=== PATIENT | female | born 1960 | race Caucasian/White ===

== ENCOUNTER 2024-11-14 20:46 | Outpatient (OUT) | payer MEDICAID, SELFPAY ==
--- OUTSIDE RECORDS SUMMARY | 2024-07-11 06:00 | XMS_ITS ---
Author Organization [facility] Serv[facility] es Address [address] [place] [address] Care Team Providers Care Supervisor Vegetable Farming Name Role Phone Dr. Charles Mackay Primary Care Provider [phone] REASON FOR VISIT OUTREACH MANAGER EXAM Encounters Encounter Location Date Provider Diagnosis [facility] Services [address] [place] [address] 07/11/2024 Charles Mackay Plan Of Treatment No Information Progress Notes * SAVANAH HYLTONOB:[birth year] (64 yo F)Acc No.[id number]:07/11/2024 Patient: CHIOMA JASSO Provider: Graham Mackay DDS :1960 A ge:64 Y S ex:Female Date:07/11/2024 Address:[address] Subjective: * Chief Complaints: * 1 . OUTREACH MANAGER EXAM. * Medical History: Objective: * Vitals: Assessment: Plan: * Treatment: * Images: * Electronic signature of Dr. Charles Mackay , DMD on 11/14/2024 at 08:50 PM EDT Sign off status: Pending * Provider: Graham Mackay DDS Date: 07/11/2024 Generated for Sara douglass/Jose/eTransmitting on: 0 11/14/2024 08:50 PM EDT
--- OUTSIDE RECORDS SUMMARY | 2024-09-26 12:00 | XMS_ITS ---
Author Organization [facility] Servic es Address [address] [place] [address] Care Team Providers Care News Assistant Name Role Phone Dr. Charles Mackay Primary Care Provider [phone] REASON FOR VISIT NEW PATIENT Encounters Encounter Location Date Provider Diagnosis [facility] [address] [place] [address] 09/26/2024 Charles Mackay Plan Of Treatment No Information Progress Notes * SAVANAH HYLTONOB:[birth year] (64 yo F)Acc No.[id number]:09/26/2024 Patient: CHIOMA JASSO Provider: Graham Mackay DDS :1960 A ge:64 Y S ex:Female Date:09/26/2024 Address:[address] Subjective: * Chief Complaints: * 1 . NEW PATIENT. * Medical History: Objective: * Vitals: Assessment: Plan: * Treatment: * Images: * Electronic signature of Dr. Charles Mackay , DMD on 11/14/2024 at 08:50 PM EDT Sign off status: Pending * Provider: Graham Mackay DDS Date: 09/26/2024 Generated for Sara douglass/Jose/eTransmitting on: 11/14/2024 08:50 PM EDT
--- OUTSIDE RECORDS SUMMARY | 2024-10-23 09:30 | XMS_ITS ---
Author Organization [facility] Servic es Address [address] [place] [address] Care Team Providers Care Data Typist Name Role Phone Dr. Charles Mackay Primary Care Provider REASON FOR VISIT ASSOCIATE BRAND MANAGER EXAM Encounters Encounter Location Date Provider Diagnosis [facility] Services [address] [place] [address] 10/23/2024 Charles Mackay Plan Of Treatment No Information Progress Notes * SAVANAH HYLTONOB:[birth year] (64 yo F)Acc No.[id number]:10/23/2024 Patient: CHIOMA JASSO Provider: Graham Mackay DDS :1960 A ge:64 Y S ex:Female Date:10/23/2024 Address:[address] Subjective: * Chief Complaints: * 1 . ASSOCIATE BRAND MANAGER EXAM. * Medical History: Objective: * Vitals: Assessment: Plan: * Treatment: * Images: * Electronic signature of Dr. Charles Mackay , DMD on 11/14/2024 at 08:51 PM EDT Sign off status: Pending * Provider: Graham Makcay DDS Date: 10/23/2024 Generated for Sara douglass/Jose/eTransmitting on: 11/14/2024 08:51 PM EDT
--- OUTSIDE RECORDS SUMMARY | 2024-11-14 20:50 | XMS_ITS | Encounter Summary ---
[facility] Address [id number] [place] [address] Care Team Providers Care Apartment House Manager Name Role Phone Laney Harrison MD Primary Care Provider [phone] Encounter Details Date Type Department Care Team (Late st Contact Info) Description 11/24/[address] [facility] [address] [address] Jazmin Rueda Social History Tobacco Use Types Packs/Day Years Used Date Smoking Tobacco: Never Smokeless Tobacco: Never Alcohol Use Standard Drinks/Week Comments No 0 (1 standard drink = 0.6 oz pur e alcohol) AUDIT-C Answer Date Recorded Q1: How often do you have a drink containing alcohol? Never 08/11/2022 Q2: How many drinks containi ng alcohol do you have on a typical day when you are drinking? Patient does not drink Q3: How often do you have si x or more drinks on one occasion? Never 08/11/2022 PHQ-2 Answer Date Recorded Total Score 0 08/11/2022 Childcare Answer Date Recorded Childcare Unknown 08/16/2018 Employment Answer Date Recorded Employment Unknown 08/16/2018 Purpose - Life Answer Date Recorded Purpose and direction in life Unknown Comments Unknown Sex and Gender Information Value Date Recorded Sex Assigned at Female 09/17/2021 11:08 AM EDT Legal Sex Female 11:31 AM EDT Gender Identity Female 08/10/2022 8:40 AM EDT Sexual Orientation Straight 08/10/2022 8: 40 AM EDT documented as of this encounter Miscellaneous Notes * Telephone Encounter - Jazmin Rueda - 11/24/2022 11:[address] order for PFT & cx Thank You for all you do documented in this encounter Plan of Treatment Upcoming Encounters Date Type Department Care Team (Late st Contact Info) Description 02/11/2025 10:00 AM EST Office Visit [facility] [place] [address] [place] [address] Mari Gomez DO [address] [place] [address] [place] [address] documented as of this encounter Goals Goal Patient Goal Type Associated Problems Recent Progress Patient-Stated? Author <enter goal here> General Yes Saray Mackey, RN Note: Evaluation of progress towards goal: DC home w/ self-care and family/friend support documented as of this encounter Visit Diagnoses Not on filedocumented in this encounter Additional Health Concerns Assessment Noted Time PHQ-9 Depression Total Score: 0 08/12/19 23 2:01 PM EDT documented as of this encounter Care Teams Apartment House Manager Relationship Specialty Start Date End Date Laney Harrison MD PCP - General Family Medicine 06/16/17 documented as of this encounter
--- OUTSIDE RECORDS SUMMARY | 2024-11-14 20:50 | XMS_ITS | Encounter Summary ---
Author Organization [facility] Address [address] [place] [address] Care Team Providers Care Senior Specialist Name Role Phone Laney Harrison MD Unavailable Lucila Lopez PMHNP-BC Unavailable Juliana Stewart DPM Unavailable [phone] Matt Laguna MD Unavailable [phone] Nicol Weber MD Unavailable [phone] Marilu Hutchinson DO Unavailable [phone] Laney Harrison MD Primary Care Provider Samantha Rosenthal LPC Unavailable Unava ilable Unallocated, Noms Provider Primary Care Provi adela Reason for Visit * Reason Onset Date Comments Med Refill 05/10/2024 Encounter Details Date Type Department Care Team (Late st Contact Info) Description 05/10/2024 Refill [facility] [address] [facility] [address] [place] [id number] Juliana Stewart, DPM [address] [facility] [address] [place] [address] Primary osteoarthritis, left ankle and foot Social History Tobacco Use Types Packs/Day Years Used Date Smoking Tobacco: Never Smokeless Tobacco: Never Alcohol Use Standard Drinks/Week Comments Never 0 (1 standard drink = 0.6 oz pure alcohol) Caffeine intake: 2 cups per day pop B1300 Health Literacy Answer Date Recor ded How often do you need to hav e someone help you when you read instructions, pamphlets, or other written material from your doctor or pharmacy? Never 10/17/2023 Humiliation, Afraid, Rape, and Kick questionnair e Answer Date Recorded Within the last year, have y ou been afraid of your partner or ex-partner? No 08/09/2022 Within the last year, have y ou been humiliated or emotionally abused in other ways by your partner or ex-partner? No Within the last year, have y ou been kicked, hit, slapped, or otherwise physically hurt by your partner or ex-partner? No 08/09/2022 Within the last year, have y ou been raped or forced to have any kind of sexual activity by your partner or ex-partner? No 08/09/2022 Social Connection and Isolat ion Panel [NHANES] Answer Date Recorded In a typical week, how many times do you talk on the phone with family, friends, or neighbors? More than three times a week 10/17/2023 How often do you get togethe r with friends or relatives? Twice a week 10/17/2023 How often do you attend chur ch or pentecostal services? Never 10/17/2023 Do you belong to any clubs o r organizations such as presybeterian groups, unions, fraternal or athletic groups, or school groups? No 10/17/2023 How often do you attend meet ings of the clubs or organizations you belong to? Never 10/17/2023 Are you , , di vorced, , never , or living with a partner? 10/17/2023 AUDIT-C Answer Date Recorded Q1: How often do you have a drink containing alcohol? Never 10/17/2023 Q2: How many drinks containi ng alcohol do you have on a typical day when you are drinking? Patient does not drink Q3: How often do you have si x or more drinks on one occasion? Never 10/17/2023 Overall Financial Resource Strain (CARDIA) Answe r Date Recorded How hard is it for you to pa y for the very basics like food, housing, medical care, and heating? Not hard at all 10/17/2023 PHQ-2 Answer Date Recorded Patient Health Questionnaire-2 Score 0 08/23/2022 [facility] - Occupational Stress Questionnaire Answer Date Recorded Do you feel stress - tense, restless, nervous, or anxious, or unable to sleep at night because your mind is troubled all the time - these days? Very much 10/17/2023 Exercise Vital Sign Answer Date Recorde d On average, how many days pe r week do you engage in moderate to strenuous exercise (like a brisk walk)? 0 days 10/17/2023 On average, how many minutes do you engage in exercise at this level? 0 min 10/17/2023 Hunger Vital Sign Answer Date Recorded Within the past 12 months, y ou worried that your food would run out before you got the money to buy more. Never true 10/17/19 24 Within the past 12 months, t he food you bought just didn't last and you didn't have money to get more. Never true 10/17/2023 PRAPARE - Transportation Answer Date Re corded In the past 12 months, has l ack of transportation kept you from medical appointments or from getting medications? No 10/05 In the past 12 months, has l ack of transportation kept you from meetings, work, or from getting things needed for daily living? No 10/17/2023 Housing Stability Vital Sign Answer Luigi e Recorded In the last 12 months, was t here a time when you were not able to pay the mortgage or rent on time? No 08/09/2022 In the last 12 months, how many places have you lived? 1 08/09/2022 In the last 12 months, was t here a time when you did not have a steady place to sleep or slept in a fci (including now)? No 08/09/2022 Housing Stability Vital Sign Answer Luigi e Recorded In the last 12 months, was t here a time when you were not able to pay the mortgage or rent on time? No 10/17/2023 In the past 12 months, how m any times have you moved where you were living? 0 10/17/2023 At any time in the past 12 m [facility], were you homeless or living in a fci (including now)? No 10/17/2023 Education Answer Date Recorded What is the highest level of school you have completed or the highest degree you have received? Some college, no degree 02/21/2024 Comments Unknown Sex and Gender Information Value Date Recorded Sex Assigned at Female 08/08/2022 11:41 AM EDT Legal Sex Female 6:38 PM EDT Gender Identity Female 05/19/2022 6:38 PM EDT Sexual Orientation Straight 08/08/2022 11 :41 AM EDT Occupation Industry Job Start Date Job End Date Not on file Not on file Not on file Not on file documented as of this encounter Miscellaneous Notes * Telephone Encounter - Melanie Gastelum MA - 05/10/2024 1:35 PM EST Rx approved through previous encounter documented in this encounter Plan of Treatment Not on file documented as of this encounter Goals Goal Patient Goal Type Associated Problems Recent Progress Patient-Stated? Author Help patient manage antidepressant medication Care Plan Patient on antidepressant monitoring plan No Laney Harrison MD Baseline PHQ-9 Care Plan Baseline PHQ-9 No Laney Harrison MD documented as of this encounter Visit Diagnoses Diagnosis Primary osteoarthritis, left ankle and foot documented in this encounter Additional Health Concerns Active Problems Noted Date Diagnosed Date Patient on antidepressant monitoring plan 2022 Baseline PHQ-9 01/16/2023 documented as of this encounter Care Teams Senior Specialist Relationship Specialty Start Date End Date Laney Harrison MD [address] [place] [address] PCP - JOSE A HERNANDEZ 12/06/23 Laney Harrison MD [address] [place] [address] PCP - General Family Medicine 03/13/24 05/14/24 Unallocated, MD [place] [address] PCP - General Family Medicine 05/15/24 Lucila [facility] [address] [place] [address] Nurse Practitioner Behavioral Health 02/21/24 09/17/24 Juliana Stewart DPM [address] [place] [address] Referring Physician Podiatry 02/21/24 Matt Laguna MD [address] [facility] [address] [place] [address] Referring Physician Gastroenterology 02/21/24 Nicol Weber MD [address] [facility] [address] [place] [address] Referring Physician Vascular Surgery 02/21/24 Marilu Hutchinson DO [address] [place] [address] Referring Physician Pulmonary Disease 02/21/24 Samantha Rosenthal LPC Therapist Behavioral Health 04/11/24 08/21/24 documented as of this encounter
--- OUTSIDE RECORDS SUMMARY | 2024-11-14 20:50 | XMS_ITS | Clinical Summary ---
Author Organization [employer] [facility] Address [id number] [place] [address] Care Team Providers Care Software Engineer Advisor Name Role Phone Laney Harrison MD Primary Care Provider [phone] Allergies Active Allergy Reactions Criticality Noted Date Comments Gabapentin Hallucinations 08/09/2022 Meperidine 02/08/2016 Metronidazole 02/08/2016 Other reaction(s): hallucinations Other Reaction(s): hallucinations Medications pravastatin (PRAVACHOL) 40 mg tablet Take 1 tablet (40 mg total) by mouth in the morning. Active mirabegron (MYRBETRIQ) 50 mg tablet extended release 24 hr Take 1 tablet (50 mg total) by mouth in the morning. Active metoprolol tartrate (LOPRESSOR) 25 mg tablet Take 1 tablet (25 mg total) by mouth in the morning and 1 tablet (25 mg total) before bedtime. Active rOPINIRole (REQUIP) 1 mg tablet Take 2 tablets (2 mg total) by mouth in the morning and at bedtime. Active venlafaxine XR (EFFEXOR-XR) 150 mg 24 hr capsule Take 2 capsules (300 mg total) by mouth in the morning. Active mirtazapine (REMERON) 30 mg tablet Take 1 tablet (30 mg total) by mouth nightly. Active omeprazole (PriLOSEC) 40 mg capsule Take 1 capsule (40 mg total) by mouth in the morning and at bedtime. 07/14/2022 Active ZENPEP 40,000-126,000- 168,000 unit capsule,delayed release(DR/EC) Take 1 capsule by mouth 3 (three) times a day. 07/26/2022 Active lisinopriL (PRINIVIL,ZESTR IL) 10 mg tablet Take 1 tablet (10 mg total) by mouth in the morning. 07/14/2022 Active amitriptyline (ELAVIL) 25 mg tabletIndicatio ns:Fibromyalgia Take one tablet at bedtime 30 tablet 2 04/09/2024 Active cyclobenzaprine (FLEXERIL) 10 mg tabletIndicatio ns:Fibromyalgia Take 1 tablet (10 mg total) by mouth nightly. One tablet Q 8:00 p.m. each night 30 tablet 5 04/09/2024 Active pregabalin (LYRICA) 75 mg capsuleIndicati ons:Fibromyalgi a Take one capsule three times a day 90 capsule 2 04/09/2024 Active aspirin 81 mg chewable tablet Chew 1 tablet (81 mg total) and swallow in the morning. Active cyanocobalamin, vitamin B-12, 5,000 mcg tablet,disinteg rating Dissolve 1 tablet on tongue. 01/19/2024 Active rosuvastatin (CRESTOR) 40 mg tablet Take 1 tablet (40 mg total) by mouth in the morning. Active acetaminophen (TYLENOL EXTRA STRENGTH) 500 mg tablet Take 1 tablet (500 mg total) by mouth every 6 (six) hours as needed for pain. 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 90 tablet 3 08/09/2024 Active Active Problems Problem Noted Date Diagnosed Date Deep vein thrombosis (DVT) of lower extremity Cerebrovascular accident (CV A) due to stenosis of left posterior cerebral artery 06/20/2024 Chronic deep vein thrombosis (DVT) of popliteal vein of left lower extremity 02/13/2024 Anxiety 10/21/2023 Chronic kidney disease, stage 3a 03/16/2023 KRISTAL (obstructive sleep apnea) 03/16/2023 Type 2 diabetes mellitus wit h stage 3a chronic kidney disease, without long-term current use of insulin 03/16/2023 Dyspnea on exertion 12/06/2022 Excessive daytime sleepiness 12/06/2022 Pulmonary embolism 08/11/2022 Chronic fatigue 08/09/2022 Fibromyalgia 08/09/2022 Short bowel syndrome 08/09/2022 History of colostomy reversal 06/28/2022 Ischemic colitis 12/24/2021 Perforated nasal septum 12/29/2017 TMJ arthropathy 05/25/2017 Deviated septum 05/25/2017 Dysfunction of both eustachian tubes 04/27/2017 Bilateral hearing loss 04/27/2017 Dizziness 04/27/2017 Essential hypertension 09/30/2016 HLD (hyperlipidemia) 09/30/2016 Overview (08/21/2024): Last Assessment & Plan: Assessment: stable on medication Gastro-esophageal reflux disease without esophag itis 11/10/2012 Immunizations Immunization Administration Dates Next Due COVID-19, mRNA, LNP-S, PF, 100mcg/0.5mL Dose 06/16/2020,05/19/2020 Influenza (IM) Preservative Free 02/05/2014 Influenza, Im Flucelvax (Pf) 02/23/2018 Influenza, Injectable, quadr ivalent (PF) 12/28/2021,01/19/2020,02/04/2016,01/28 Influenza, Unspecified 03/22/2018,06/17/2017 Pneumococcal Polysaccharide 02/04/2016 Zoster Vaccine Recombinant 01/19/2020 Family History Medical History Relation Name Comments Arthritis Father Demetri Enrique COPD Father Demetri Enrique Diabetes Father Demetri Enrique Emphysema Father Deemtri Enrique Heart disease Father Demetri Enrique Hypertension Father Demetri Enrique Vision loss Father Demetri Enrique Arthritis Maternal Grandmother Amparo Klaus Desea sed Diabetes Maternal Grandmother Amparoness Enrique Heart disease Maternal Grandmother Amparoness Enrique Hypertension Maternal Grandmother Amparoness Enrique Stroke Maternal Grandmother Amparo Klaus Vision loss Maternal Grandmother Amparoness Enrique Breast cancer Sister Danyell June Diabetes Sister Danyell June Asthma Son Niko [place] Relation Name Status Comments Father Demetri Enrique Maternal Grandmother Amparo Klaus Sister Danyell June Son Niko [place] Social History Tobacco Use Types Packs/Day Years Used Date Smoking Tobacco: Never Smokeless Tobacco: Never Alcohol Use Standard Drinks/Week Comments Not Currently 0 (1 standard drink = 0.6 oz pur e alcohol) Occasionally AUDIT-C Answer Date Recorded Q1: How often [...] Employment Answer Date Recorded Employment Unknown 08/16/2018 Hunger Screening Answer Date Recorded Within the past 12 months we worried whether our food would run out before we got money to buy more. Never True 08/09/2024 Within the past 12 months th e food we bought just didn't last and we didn't have money to get more. Never True 08/09/2024 Purpose - Life Answer Date Recorded Purpose and direction in life Unknown Comments Unknown Sex and Gender Information Value Date Recorded Sex Assigned at Female 09/17/2021 11:08 AM EDT Legal Sex Female 11:31 AM EDT Gender Identity Female 08/10/2022 8:40 AM EDT Sexual Orientation Straight 08/10/2022 8: 40 AM EDT Last Filed Vital Signs Vital Sign Reading Time Taken Comments Blood Pressure 138/88 08/09/2024 11:07 AM EDT Pulse 66 07/04/2023 8:09 AM EDT Temperature 36.9 C (98.4 F) 08/13/2022 7:32 AM EDT Respiratory Rate 18 04/09/2024 9:47 AM EST Oxygen Saturation 98% 12/06/2022 9:56 AM EDT Inhaled Oxygen Concentration - - Weight 110.2 kg (243 lb) 08/09/2024 11:07 AM EDT Height 154.9 cm (5' 0.98 ) 08/09/2024 11:07 AM E DT Body Mass Index 45.94 08/09/2024 11:07 AM EDT Plan of Treatment Upcoming Encounters Date Type Department Care Team (Late st Contact Info) Description 02/11/2025 10:00 AM EST Office Visit [facility] [place] [address] [place] [address] Mari Gomez DO [address] [employer] [address] [place] [address] Health Maintenance Due Date Last Done Comments Diabetic Ophthalmology Exam 1960 Adult BMI Follow Up Plan 06/25/1979 Diabetic Foot Exam 06/25/1979 DTaP,Tdap and Td Vaccines (1 - Tdap) 1980 Pap Smear 1982 Zoster (Shingles) Vaccine (2 of 2) 03/15/20202019 Depression Screening 08/12/2023 08/11/2022 COVID-19 Vaccine ( - 2024-2 6 season) 2024 01/30/2021, 06/16/2020, 05/19/2020 Influenza Vaccine 11/05/2024 01/23/2024, , 12/28/2021, Additional history exists Adult BMI Screening 08/09/2025 08/09/2024 Statin Use: Diabetic 08/09/2025 08/09/2024 Tobacco Screening 08/21/2025 08/21/2024 Goals Goal Patient Goal Type Associated Problems Recent Progress Patient-Stated? Author <enter goal here> General Yes Saray Mackey, RN Note: Evaluation of progress towards goal: DC home w/ self-care and family/friend support Medical Devices Not on file Insurance [facility] MEDICAID Advance Directives * Full Code (Latest Code Status on File) Date Activated Date Inactivated Comments 08/11/2022 1:56 PM 08/13/2022 2:41 PM * Full Code Date Activated Date Inactivated Comments 08/09/2022 4:52 PM 08/11/2022 11:44 AM Care Teams Software Engineer Advisor Relationship Specialty Start Date End Date Laney Harrison MD PCP - General Family Medicine 06/16/17
--- OUTSIDE RECORDS SUMMARY | 2024-11-14 20:50 | XMS_ITS | Encounter Summary ---
Author Organization [facility] Address [address] [place] [address] Care Team Providers Care Helmet Hat Brim Cutter Name Role Phone Laney Harrison MD Primary Care Provider [phone] Laney Harrison MD Unavailable Lucila Lopez PMHNP- Unavailable [phone] Juliana Stewart DPM Unavailable [phone] Matt Laguna MD Unavailable [phone] Nicol Weber MD Unavailable [phone] Marilu Hutchinson DO Unavailable [phone] Laney Harrison MD Primary Care Provider [phone] Samantha Rosenthal SENIOR PORTFOLIO ANALYST Unavailable Unava ilable Michelle Mcintyre LPCC Unavailable [phone] Unallocated, Gwyn Provider Primary Care Provi adela Encounter Details Date Type Department Care Team (Late st Contact Info) Description 06/04/2023 Abstract [facility] [address] [place] [address] Laney Harrison MD [address] [place] [address] Social History Tobacco Use Types Packs/Day Years Used Date Smoking Tobacco: Never Smokeless Tobacco: Never Alcohol Use Standard Drinks/Week Comments Never 0 (1 standard drink = 0.6 oz pure alcohol) Caffeine intake: 1-2 cups per day Humiliation, Afraid, Rape, and Kick questionnair e [...] neighbors? More than three times a week 08/09/2022 How often do you get togethe r with friends or relatives? Three times a week 08/09/2022 How often do you attend chur or episcopal services? 1 to 4 times per year 08/09/2022 Do you belong to any clubs o r organizations such as hoahaoism groups, unions, fraternal or athletic groups, or school groups? Yes 08/09/2022 How often do you attend meet ings of the clubs or organizations you belong to? 1 to 4 times per year 08/09/2022 Are you , , di vorced, , never , or living with a partner? Living with partner 08/09/2022 AUDIT-C Answer Date Recorded Q1: How often do you have a drink containing alcohol? Never 08/09/2022 Q2: How many drinks containi ng alcohol do you have on a typical day when you are drinking? Patient does not drink Q3: How often do you have si x or more drinks on one occasion? Never 08/09/2022 Overall Financial Resource Strain (CARDIA) Answe r Date Recorded How hard is it for you to pa y for the very basics like food, housing, medical care, and heating? Not hard at all 08/09/2022 PHQ-2 Answer Date Recorded Patient Health Questionnaire-2 Score 0 08/23/2022 [facility] - Occupational Stress Questionnaire Answer Date Recorded Do you feel stress - tense, restless, nervous, or anxious, or unable to sleep at night because your mind is troubled all the time - these days? To some extent 08/09/2022 Exercise Vital Sign Answer Date Recorde d On average, how many days pe r week do you engage in moderate to strenuous exercise (like a brisk walk)? 0 days 08/09/2022 On average, how many minutes do you engage in exercise at this level? 0 min 08/09/2022 Hunger Vital Sign Answer Date Recorded Within the past 12 months, y ou worried that your food would run out before you got the money to buy more. Never true 08/10/19 23 Within the past 12 months, t he food you bought just didn't last and you didn't have money to get more. Never true 08/09/2022 PRAPARE - Transportation Answer Date Re corded In the past 12 months, has l ack of transportation kept you from medical appointments or from getting medications? No 07/2022 In the past 12 months, has l ack of transportation kept you from meetings, work, or from getting things needed for daily living? No 08/09/2022 Housing Stability Vital Sign Answer [...] in a fci (including now)? No 08/09/2022 Comments Unknown Sex and Gender Information Value Date Recorded Sex Assigned at Female 08/08/2022 11:41 AM EDT Legal Sex Female 6:38 PM EDT Gender Identity Female 05/19/2022 6:38 PM EDT Sexual Orientation Straight 08/08/2022 11 :41 AM EDT documented as of this encounter Plan of Treatment Not on [...] filedocumented in this encounter Additional Health Concerns Active Problems Noted Date Diagnosed Date Patient on antidepressant monitoring plan 2022 Baseline PHQ-9 01/16/2023 documented as of this encounter Care Teams Helmet Hat Brim Cutter Relationship Specialty Start Date End Date Laney Harrison MD [address] [place] [address] PCP - General Family Medicine 07/27/22 02/20/24 Laney Harrison MD [address] [place] [address] PCP - GWYN HERNANDEZ 12/06/23 Laney Harrison MD [address] [place] [address] PCP - General Family Medicine 03/13/24 05/14/24 Unallocated, Gwyn Epstein MD [address] [place] [address] PCP - General Family Medicine 05/15/24 Lucila Lopez [facility] [address] [facility] [address] [place] [address] Nurse Practitioner Behavioral Health 02/21/24 09/17/24 Juliana Stewart DPM [address] [place] [address] Referring Physician Podiatry 02/21/24 Matt Laguna MD [address] [place] [address] Referring Physician Gastroenterology 02/21/24 Nicol Weber MD [address] [place] [address] Referring Physician Vascular Surgery 02/21/24 Marilu Hutchinson DO [address] [place] [address] Referring Physician Pulmonary Disease 02/21/24 Samantha Rosenthal LPC Therapist Behavioral Health 04/11/24 08/21/24 Michelle Mcintyre [facility] [address] [place] [address] Electrician Control Equipment Behavioral Health 04/08/24 04/09/24 documented as of this encounter
--- OUTSIDE RECORDS SUMMARY | 2024-11-14 20:50 | XMS_ITS | Encounter Summary ---
Author Organization [facility] Address [id number] [place] [address] Care Team Providers Care Sash Maker Name Role Phone Laney Harrison MD Primary Care Provider [phone] Encounter Details Date Type Department Care Team (Late st Contact Info) Description 03/15/2023 Telephone [facility] [address] [address] Jazmin Rueda Social History Tobacco [...] got money to buy more. Never True 12/06/2022 Within the past 12 months th e food we bought just didn't last and we didn't have money to get more. Never True 12/06/2022 Purpose - Life Answer Date Recorded Purpose and direction in life Unknown Comments Unknown Sex and Gender Information Value Date Recorded Sex Assigned at Female 09/17/2021 11:08 AM EDT Legal Sex Female 11:31 AM EDT Gender Identity Female 08/10/2022 8:40 AM EDT Sexual Orientation Straight 08/10/2022 8: 40 AM EDT documented as of this encounter Plan of Treatment Upcoming Encounters Date Type Department Care Team (Late st Contact Info) Description 02/11/2025 10:00 AM EST Office Visit [facility] [place] [address] [place] [address] Mari Gomez DO [address] [facility] [address] [place] [address] documented as of this encounter Goals Goal Patient Goal Type Associated Problems Recent Progress Patient-Stated? Author <enter goal here> General Yes Saray Mackey, RN Note: Evaluation of progress towards goal: DC home w/ self-care and family/friend support documented as of this encounter Results * X-ray chest 2 views (04/05/2023 11:49 AM EST) Anatomical Region Laterality Modality Chest N/A Computed Radiogr aphy 04/05/2023 12:2 9 PM EST Narrative 04/05/2023 12:30 PM EST Chest 2 views History: Shortness of breath Dyspnea on exertion Comparison: 11/30/2022 Findings: Chest 2 views. Stable cardiomediastinal silhouette. No new focal opacity, effusion or pneumothorax. Degenerative changes of the thoracic spine. Impression: No evident acute cardiopulmonary process. Finalized by Ben Baltazar MD on 04/05/2023 12:30 PM Procedure Note Ben Baltazar MD - 04/05/2023 Chest 2 views History: Shortness of breath Dyspnea on exertion Comparison: 11/30/2022 Findings: Chest 2 views. Stable cardiomediastinal silhouette. No new focal opacity, effusion orpneumothorax. Degenerative changes of the thoracic spine. Impression: No evident acute cardiopulmonary process. Finalized by Ben Baltazar MD on 04/05/2023 12:30 PM Nhung Trejo MD IMG DIAGNOSTIC IMAGING ORDERAB LES Final Result documented in this encounter Visit Diagnoses Diagnosis Dyspnea on exertion- Primary Other dyspnea and respiratory abnormality Dyspnea on exertion Other dyspnea and respiratory abnormality documented in this encounter Additional Health Concerns Assessment Noted Time PHQ-9 Depression Total Score: 0 08/12/19 23 2:01 PM EDT documented as of this encounter Care Teams Sash Maker Relationship Specialty Start Date End Date Laney Harrison MD PCP - General Family Medicine 06/16/17 documented as of this encounter
--- OUTSIDE RECORDS SUMMARY | 2024-11-14 20:50 | XMS_ITS | Encounter Summary ---
Author Organization [facility] Address [id number] [address] [place] [address] Care Team Providers Care Product Tester Name Role Phone Laney Harrison MD Primary Care Provider [phone] Reason for Visit * Reason Onset Date Comments Med Refill 02/07/2024 Encounter Details Date Type Department Care Team (Late st Contact Info) Description 02/07/2024 Refill [facility] [address] [place] [address] Mirta Valdez APRN-OR RN [address] [place] [id number] Acute saddle pulmonary embolism without acute cor pulmonale (CMS-HCC); Chronic deep vein thrombosis (DVT) of other vein of left lower extremity (CMS-HCC); Multiple subsegmental pulmonary emboli without acute cor pulmonale (CMS-HCC) Social History Tobacco Use Types Packs/Day Years [...] got money to buy more. Never True 07/04/2023 Within the past 12 months th e food we bought just didn't last and we didn't have money to get more. Never True 07/04/2023 Purpose - Life Answer Date Recorded Purpose and direction in life Unknown Comments Unknown Sex and Gender Information Value Date Recorded Sex Assigned at Female 09/17/2021 11:08 AM EDT Legal Sex Female 11:31 AM EDT Gender Identity Female 08/10/2022 8:40 AM EDT Sexual Orientation Straight 08/10/2022 8: 40 AM EDT documented as of this encounter Miscellaneous Notes * Telephone Encounter - Brandy Okeefe - 02/07/2024 3:56 PM EST Patient is calling to request refill of Xarelto- verified [facility] in [place]. * Telephone Encounter - Kate Paul LPN - 02/07/2024 3:56 PM EST Patient will need an appt for refill documented in this encounter Plan of Treatment Upcoming Encounters Date Type Department Care Team (Late st Contact Info) Description 02/11/2025 10:00 AM EST Office Visit [facility] [place] [address] Mari Gomez, [address] [facility] [address] [place] [address] documented as of this encounter Goals Goal Patient Goal Type Associated Problems Recent Progress Patient-Stated? Author <enter goal here> General Yes Saray Mackey, RN Note: Evaluation of progress towards goal: DC home w/ self-care and family/friend support documented as of this encounter Visit Diagnoses Diagnosis Acute saddle pulmonary embolism without acute cor pulmonale (CMS-HCC) Chronic deep vein thrombosis (DVT) of other vein of left lower extremity (CMS-HCC) Multiple subsegmental pulmonary emboli without acute cor pulmonale (CMS-HCC) documented in this encounter Additional Health Concerns Assessment Noted Time PHQ-9 Depression Total Score: 0 08/12/19 23 2:01 PM EDT documented as of this encounter Care Teams Product Tester Relationship Specialty Start Date End Date Laney Harrison MD PCP - General Family Medicine 06/16/17 documented as of this encounter
--- OUTSIDE RECORDS SUMMARY | 2024-11-14 20:50 | XMS_ITS | Encounter Summary ---
Author Organization [facility] Address [facility] [place] [address] Care Team Providers Care Clinical Genetics Laboratory Chief Name Role Phone Natalie Campbell MD Primary Care Provider [phone] Laney Harrison MD Primary Care Provider [phone] Source Comments In the event this information is protected by the Federal Confidentiality of Alcohol and Drug AbusePatient Records regulations: The Federal rules restrict any use of the information to criminally investigate or prosecute any alcohol or drug abuse patient.[facility] Encounter Details Date Type Department Care Team (Late st Contact Info) Description 05/11/2022 Patient Msg Colorectal Surgery [address] [place], [place] [id number] Provider, Triston new surgery date June 28 Social History Tobacco Use Types Packs/Day Years Used Date Smoking Tobacco: Never Smokeless Tobacco: Never Alcohol Use Standard Drinks/Week Comments No 0 (1 standard drink = 0.6 oz pur e alcohol) Overall Financial Resource Strain (CARDIA) Answe r Date Recorded How hard is it for you to pa y for the very basics like food, housing, medical care, and heating? Not hard at all 12/25/2021 Hunger Vital Sign Answer Date Recorded Within the past 12 months, y ou worried that your food would run out before you got the money to buy more. Never true 12/26/19 22 Within the past 12 months, t he food you bought just didn't last and you didn't have money to get more. Never true 12/25/2021 PRAPARE - Transportation Answer Date Re corded In the past 12 months, has l ack of transportation kept you from medical appointments or from getting medications? No 12/06 In the past 12 months, has l ack of transportation kept you from meetings, work, or from getting things needed for daily living? No 12/25/2021 Housing Stability Vital Sign Answer Luigi e Recorded In the last 12 months, was t here a time when you were not able to pay the mortgage or rent on time? No 12/25/2021 In the last 12 months, how many places have you lived? 1 12/25/2021 In the last 12 months, was t here a time when you did not have a steady place to sleep or slept in a senior living (including now)? No 12/25/2021 Area Deprivation Index Answer Date Corwin rded National Score (1-100), lower number is lower ri sk Not on file 02/13/2020 State Score (1-10), lower number is lower risk N ot on file 02/13/2020 Data from: https://www.neighborhoodatlas.medicine.[facility].edu/. Last address used for calculation Not on file 02/13/2020 Comments No Sex and Gender Information Value Date Recorded Sex Assigned at Female 07/17/2021 5:01 PM EDT Legal Sex Female 2:19 PM EDT Gender Identity Female 07/17/2021 5:01 PM EDT Sexual Orientation Straight 07/17/2021 5: 01 PM EDT documented as of this encounter Functional Status * Are you deaf or do you have serious difficulty hearing? Answer Date of Assessment Author No 01/03/2022 11:13 AM EDT Ciera Burrows, ELYSIA * Are you blind or do you have serious difficulty seeing, even when wearing glasses? Answer Date of Assessment Author No 01/03/2022 11:13 AM Ciera Mccabe RN * Do you have serious difficulty walking or climbing stairs? Answer Date of Assessment Author No 01/03/2022 11:13 AM Ciera Mccabe RN * Do you have difficulty dressing or bathing? Answer Date of Assessment Author No 01/03/2022 11:13 AM Ciera Mccabe RN * Because of a physical, mental, or emotional condition, do you have difficulty doing errands alone such as visiting a doctor's office or shopping? Answer Date of Assessment Author No 01/03/2022 11:13 AM Ciera Mccabe RN documented as of this encounter Mental Status * Because of a physical, mental, or emotional condition, do you have serious difficulty concentrating, remembering, or making decisions? Answer Entry Date Author No 01/03/2022 11:13 AM Ciera Mccabe RN documented in this encounter Plan of Treatment Not on file documented as of this encounter Visit Diagnoses Not on filedocumented in this encounter Care Teams Clinical Genetics Laboratory Chief Relationship Specialty Start Date End Date Natalie Campbell MD [address] [place] [address] PCP - General Family Medicine 10/04/12 06/01/22 Laney Harrison MD [address] [place] [address] PCP - General Family Medicine 06/02/22 documented as of this encounter
--- OUTSIDE RECORDS SUMMARY | 2024-11-14 20:50 | XMS_ITS | Encounter Summary ---
Author Organization [facility] Address [address] [place] [address] Care Team Providers Care Datapower Consultant Name Role Phone Laney Harrison MD Unavailable Lucila Lopez PMHNP-BC Unavailable Juliana Stewart DPM Unavailable [phone] Matt Laguna MD Unavailable [phone] Nicol Weber MD Unavailable Marilu Hutchinson DO Unavailable [phone] Laney Harrison MD Primary Care Provider Samantha Rosenthal LPC Unavailable Unava ilable Unallocated, Noms Provider Primary Care Provi adela Encounter Details Date Type Department Care Team (Late st Contact Info) Description 05/07/2024 Abstract [facility] [address] [facility] [place] [address] Laney Harrison MD [address] [place] [address] Social History Tobacco Use Types [...] often do you attend chur ch or hindu services? Never 10/17/2023 Do you belong to any clubs o r organizations such as judaism groups, unions, fraternal or athletic groups, or [...] Recorded Patient Health Questionnaire-2 Score 0 08/23/2022 [facility] Occupat ional Health - Occupational Stress [...] place to sleep or slept in a long term (including now)? No 08/09/2022 Housing Stability Vital Sign Answer Luigi e Recorded In the last 12 months, was t here a time when you were not able to pay the mortgage or rent on time? No 10/17/2023 In the past 12 months, how m any times have you moved where you were living? 0 10/17/2023 At any time in the past 12 m onths, were you homeless or living in a long term (including now)? No 10/17/2023 Education Answer Date [...] on file documented as of this encounter Plan of Treatment Not on file documented as of this encounter Goals Goal Patient Goal Type Associated Problems Recent Progress Patient-Stated? Author Help patient manage antidepressant medication Care Plan Patient on antidepressant monitoring plan No Laney Harrison MD Baseline PHQ-9 Care Plan Baseline PHQ-9 Laney Christy MD documented as of this encounter Visit Diagnoses Not on filedocumented in this encounter Additional Health Concerns Active Problems Noted Date Diagnosed Date Patient on antidepressant monitoring plan 2022 Baseline PHQ-9 01/16/2023 documented as of this encounter Care Teams Datapower Consultant Relationship Specialty Start Date End Date Laney Harrison MD [address] [place] [address] PCP - [facility] 12/06/23 Laney Harrison MD [address] [place] [address] PCP - General Family Medicine 03/13/24 05/14/24 Unallocated, Gwyn Epstein MD [address] [place] [address] PCP - General Family Medicine 05/15/24 Lucila Lopez PMHNP- [address] [facility] [address] [place] [address] Nurse Practitioner Behavioral Health 02/21/24 09/17/24 Juliana Stewart DPM [address] [facility] [address] [place] [address] Referring Physician Podiatry 02/21/24 Matt Laguna MD [address] [place] [address] Referring Physician Gastroenterology 02/21/24 Nicol Weber MD [address] [place] [address] Referring Physician Vascular Surgery 02/21/24 Marilu Hutchinson DO [address] [place] [address] Referring Physician Pulmonary Disease 02/21/24 Samantha Rosenthal LPC Therapist Behavioral Health 04/11/24 08/21/24 documented as of this encounter
--- OUTSIDE RECORDS SUMMARY | 2024-11-14 20:50 | XMS_ITS | Encounter Summary ---
Author Organization [facility] Address [address] [place] [address] Care Team Providers Care Nurse Healthcare Manager Name Role Phone Laney Harrison MD Unavailable Lucila Lopez PMHNP-BC Unavailable Juliana Stewart DPM Unavailable [phone] Matt Laguna MD Unavailable [phone] Nicol Weber MD Unavailable Marilu Hutchinson DO Unavailable [phone] Laney Harrison MD Primary Care Provider Samantha Rosenthal LPC Unavailable Unava ilable Unallocated, Gwyn Provider Primary Care Provi adela Reason for Visit * Reason Onset Date Comments Med Refill 05/10/2024 Encounter Details Date Type Department Care Team (Late st Contact Info) Description 05/10/2024 Refill [facility] [address] [place] [id number] Laney Harrison MD [address] [place] [address] Fibromyalgia (Primary Dx) Social History Tobacco Use Types Packs/Day Years [...] 10/17/2023 How often do you attend chur or sikhism services? Never 10/17/2023 Do you belong to any clubs o r organizations such as faith groups, unions, fraternal or athletic groups, or [...] Recorded Patient Health Questionnaire-2 Score 0 08/23/2022 [facility] Occupat ional [facility] - Occupational Stress Questionnaire Answer Date Recorded [...] place to sleep or slept in a fdc (including now)? No 08/09/2022 Housing Stability Vital Sign Answer Luigi e Recorded In the last 12 months, was t here a time when you were not able to pay the mortgage or rent on time? No 10/17/2023 In the past 12 months, how m any times have you moved where you were living? 0 10/17/2023 At any time in the past 12 m [facility], were you homeless or living in a fdc (including now)? No 10/17/2023 Education Answer Date [...] encounter Miscellaneous Notes * Telephone Encounter - Laney Harrison MD - 05/10/2024 1:03 PM EST * Telephone Encounter - Laney Harrison MD - 05/10/2024 1:02 PM EST Approvals with refills * Telephone Encounter - Laney Harrison MD - 05/10/2024 9:43 AM EST Approvals with refills documented in this encounter Plan of Treatment Not on file documented as of this encounter Goals Goal Patient Goal Type Associated Problems Recent Progress Patient-Stated? Author Help patient manage antidepressant medication Care Plan Patient on antidepressant monitoring plan Laney Christy MD Baseline PHQ-9 Care Plan Baseline PHQ-9 Laney Christy MD documented as of this encounter Visit Diagnoses Diagnosis Fibromyalgia- Primary Unspecified myalgia and myositis documented in this encounter Additional Health Concerns Active Problems Noted Date Diagnosed Date Patient on antidepressant monitoring plan 2022 Baseline PHQ-9 01/16/2023 documented as of this encounter Care Teams Nurse Healthcare Manager Relationship Specialty Start Date End Date Laney Harrison MD [address] [place] [address] PCP - [facility] [employer] T[employer]ATMENT TECHNICIAN 12/06/23 Laney Harrison MD [address] [place], [place] [id number] PCP - General Family Medicine 03/13/24 05/14/24 Unallocated, Gwyn Epstein MD [address] [place] [address] PCP - General Family Medicine 05/15/24 Lucila Lopez, [facility] [address] [place] [address] Nurse Practitioner Behavioral Health 02/21/24 09/17/24 Juliana Stewart DPM [address] [place] [address] Referring Physician Podiatry 02/21/24 Matt Laguna MD [address] [place] [address] Referring Physician Gastroenterology 02/21/24 Nicol Weber MD [address] [place] [address] Referring Physician Vascular Surgery 02/21/24 Marilu Hutchinson DO [address] [place] [address] Referring Physician Pulmonary Disease 02/21/24 Samantha Rosenthal LPC Therapist Behavioral Health 04/11/24 08/21/24 documented as of this encounter
--- OUTSIDE RECORDS SUMMARY | 2024-11-14 20:50 | XMS_ITS | Encounter Summary ---
Author Organization [facility] Address [address] [place] [address] Care Team Providers Care Ergonomics Consultant Name Role Phone Natalie Campbell MD Primary Care Provider [phone] Laney Harrison MD Primary Care Provider [phone] Source Comments In the event this information is protected by the Federal Confidentiality of Alcohol and Drug AbusePatient Records regulations: The Federal rules restrict any use of the information to criminally investigate or prosecute any alcohol or drug abuse patient.[facility] Encounter Details Date Type Department Care Team (Late st Contact Info) Description 02/01/2014 Patient Msg Medical Records [address] [place] [address] Provider, [facility]cf Appointment Cancellation Request Social History Tobacco Use Types Packs/Day Years Used Date Smoking Tobacco: Never Alcohol Use Standard Drinks/Week Comments No 0 (1 standard drink = 0.6 oz pur e alcohol) Comments No Sex and Gender Information Value Date Recorded Sex Assigned at Female 07/17/2021 5:01 PM EDT Legal Sex Female 2:19 PM EDT Gender Identity Female 07/17/2021 5:01 PM EDT Sexual Orientation Straight 07/17/2021 5: 01 PM EDT documented as of this encounter Functional Status * Are you deaf or do you have serious difficulty hearing? Answer Date of Assessment Author No 01/17/2014 12:55 PM Shira Oliver MA * Are you blind or do you have serious difficulty seeing, even when wearing glasses? Answer Date of Assessment Author No 01/17/2014 12:55 PM Shira Oliver MA * Do you have serious difficulty walking or climbing stairs? Answer Date of Assessment Author Yes 01/17/2014 12:55 PM Shira Oliver MA * Do you have difficulty dressing or bathing? Answer Date of Assessment Author No 01/17/2014 12:55 PM Shira Oliver MA * Because of a physical, mental, or emotional condition, do you have difficulty doing errands alone such as visiting a doctor's office or shopping? Answer Date of Assessment Author No 01/17/2014 12:55 PM Shira Oliver MA documented as of this encounter Mental Status * Because of a physical, mental, or emotional condition, do you have serious difficulty concentrating, remembering, or making decisions? Answer Entry Date Author No 01/17/2014 12:55 PM Shira Oliver MA documented in this encounter Plan of Treatment Not on file documented as of this encounter Visit Diagnoses Not on filedocumented in this encounter Additional Health Concerns Infection Onset Date Last Indicated Resolved Time COVID-19 Rule-Out 12/24/2021 12/24/2021 12/24/2021 3:16 PM EDT documented as of this encounter Care Teams Ergonomics Consultant Relationship Specialty Start Date End Date Natalie Campbell MD [address] [place] [address] PCP - General Family Medicine 10/04/12 06/01/22 Laney Harrison MD [address] [place] [address] PCP - General Family Medicine 06/02/22 documented as of this encounter
--- OUTSIDE RECORDS SUMMARY | 2024-11-14 20:50 | XMS_ITS | Encounter Summary ---
Author Organization [facility] Address [address] [place] [address] Care Team Providers Care Oxygraph Operator Name Role Phone Laney Harrison MD Primary Care Provider [phone] Laney Harrison MD Unavailable Lucila Lopez PMHNP-BC Unavailable Juliana Stewart DPM Unavailable [phone] Matt Laguna MD Unavailable [phone] Nciol Weber MD Unavailable [phone] Marilu Hutchinson DO Unavailable [phone] Laney Harrison MD Primary Care Provider [phone] Samantha Rosenthal MARKETING INFORMATION ANALYST Unavailable Unava ilable Michelle Mcintyre LPCC Unavailable [phone] Unallocated, Gwyn Provider Primary Care Provi adela Reason for Visit * Reason Comments Med Refill Encounter Details Date Type Department Care Team (Late st Contact Info) Description 06/07/2023 Refill [facility] To Podiatry [address] [place] [id number] Alan Hart, DPM [address] [place], [place] [id number] Hallux rigidus of both feet; Primary osteoarthritis of both ankles; Plantar fasciitis Social History Tobacco Use Types Packs/Day Years [...] 08/09/2022 How often do you attend chur ch or denominational services? 1 to 4 times per year 08/09/2022 Do you belong to any clubs o r organizations such as scientology groups, unions, fraternal or athletic groups, or [...] Recorded Patient Health Questionnaire-2 Score 0 08/23/2022 [facility] - Occupational Stress Questionnaire Answer Date [...] place to sleep or slept in a correction (including now)? No 08/09/2022 Comments Unknown Sex and Gender Information Value Date Recorded Sex Assigned at Female 08/08/2022 11:41 AM EDT Legal Sex Female 6:38 PM EDT Gender Identity Female 05/19/2022 6:38 PM EDT Sexual Orientation Straight 08/08/2022 11 :41 AM EDT documented as of this encounter Miscellaneous Notes * Telephone Encounter - Alan Hart DPM - 06/15/2023 8:32 AM EDT No refills ordered. documented in this encounter Plan of Treatment Not on file documented as of this encounter Goals Goal Patient Goal Type Associated Problems Recent Progress Patient-Stated? Author Help patient manage antidepressant medication Care Plan Patient on antidepressant monitoring plan No Laney Harrison MD Baseline PHQ-9 Care Plan Baseline PHQ-9 No Laney Harrison MD documented as of this encounter Visit Diagnoses Diagnosis Hallux rigidus of both feet Primary osteoarthritis of both ankles Plantar fasciitis Plantar fascial fibromatosis documented in this encounter Additional Health Concerns Active Problems Noted Date Diagnosed Date Patient on antidepressant monitoring plan 2022 Baseline PHQ-9 01/16/2023 documented as of this encounter Care Teams Oxygraph Operator Relationship Specialty Start Date End Date Laney Harrison MD [address] [place] [address] PCP - General Family Medicine 07/27/22 02/20/24 Laney Harrison MD [address] [place] [address] PCP - GWYN HERNANDEZ 12/06/23 Laney Harrison MD [address] [place] [address] PCP - General Family Medicine 03/13/24 05/14/24 UnallocatGwyn awan MD [address] [place] [address] PCP - General Family Medicine 05/15/24 Lucila Lopez PMHNP- [address] [place] [address] [address] [place] [address] Nurse Practitioner Behavioral Health 02/21/24 09/17/24 Juliana Stewart DPM [address] [place] [address] Referring Physician Podiatry 02/21/24 Matt Laguna MD [address] [place] [address] Referring Physician Gastroenterology 02/21/24 Nicol Weber MD [address] [place] [address] Referring Physician Vascular Surgery 02/21/24 Marilu Hutchinson DO [address] [facility] [place] [address] Referring Physician Pulmonary Disease 02/21/24 Samantha Rosenthal LPC Therapist Behavioral Health 04/11/24 08/21/24 Michelle Mcintyre [facility] [address] [place] [address] Food Service Coordinator Behavioral Health 04/08/24 04/09/24 documented as of this encounter
--- OUTSIDE RECORDS SUMMARY | 2024-11-14 20:50 | XMS_ITS | Encounter Summary ---
Author Organization [facility] Address [facility] [place] [address] Care Team Providers Care Exceptional Needs Teacher Name Role Phone Natalie Campbell MD Primary Care Provider [phone] Laney Harrison MD Primary Care Provider [phone] Source Comments In the event this information is protected by the Federal Confidentiality of Alcohol and Drug AbusePatient Records regulations: The Federal rules restrict any use of the information to criminally investigate or prosecute any alcohol or drug abuse patient.[facility] Encounter Details Date Type Department Care Team (Late st Contact Info) Description 09/12/2013 Get Medical Advice Orthopaedics [address] [place], [place] [id number] Anthony Marte MD [address] [place], [place] [id number] RE: Visit Follow Up Question Social History Tobacco Use Types Packs/Day Years Used Date Smoking Tobacco: Never Alcohol Use Standard Drinks/Week Comments No 0 (1 standard drink = 0.6 oz pur e alcohol) Comments Unknown Sex and Gender Information Value Date Recorded Sex Assigned at Female 07/17/2021 5:01 PM EDT Legal Sex Female 2:19 PM EDT Gender Identity Female 07/17/2021 5:01 PM EDT Sexual Orientation Straight 07/17/2021 5: 01 PM EDT documented as of this encounter Functional Status * Are you deaf or do you have serious difficulty hearing? Answer Date of Assessment Author No 09/04/2013 3:22 PM EDT Shira Winslow MA * Are you blind or do you have serious difficulty seeing, even when wearing glasses? Answer Date of Assessment Author No 09/04/2013 3:22 PM EDT Shira Winslow MA * Do you have serious difficulty walking or climbing stairs? Answer Date of Assessment Author Yes 09/04/2013 3:22 PM EDT Shira Winslow MA * Do you have difficulty dressing or bathing? Answer Date of Assessment Author No 09/04/2013 3:22 PM EDT Shira Winslow MA * Because of a physical, mental, or emotional condition, do you have difficulty doing errands alone such as visiting a doctor's office or shopping? Answer Date of Assessment Author No 09/04/2013 3:22 PM EDT Shira Winslow MA documented as of this encounter Mental Status * Because of a physical, mental, or emotional condition, do you have serious difficulty concentrating, remembering, or making decisions? Answer Entry Date Author No 09/04/2013 3:22 PM EDT Shira Winslow MA documented in this encounter Plan of Treatment Not on file documented as of this encounter Visit Diagnoses Not on filedocumented in this encounter Additional Health Concerns Infection Onset Date Last Indicated Resolved Time COVID-19 Rule-Out 12/24/2021 12/24/2021 12/24/2021 3:16 PM EDT documented as of this encounter Care Teams Exceptional Needs Teacher Relationship Specialty Start Date End Date Natalie Campbell MD [address] [place] [address] PCP - General Family Medicine 10/04/12 06/01/22 Laney Harrison MD [address] [facility] [place] [address] PCP - General Family Medicine 06/02/22 documented as of this encounter
--- OUTSIDE RECORDS SUMMARY | 2024-11-14 20:50 | XMS_ITS | Encounter Summary ---
Author Organization [facility] Address [address] [place] [address] Care Team Providers Care Spouting Installer Name Role Phone Laney Harrison MD Primary Care Provider [phone] Laney Harrison MD Unavailable Lucila Lopez PMHNP- Unavailable [phone] Juliana Stewart DPM Unavailable [phone] Matt Laguna MD Unavailable [phone] Nicol Weber MD Unavailable [phone] Marilu Hutchinson DO Unavailable [phone] Laney Harrison MD Primary Care Provider [phone] Samantha Rosenthal FARM MANAGEMENT ADVISER Unavailable Unava ilable Michelle Mcintyre LPCC Unavailable [phone] Unallocated, Gwyn Provider Primary Care Provi adela Encounter Details Date Type Department Care Team (Late st Contact Info) Description 08/11/2023 Orders Only [facility] [address] [place] [address] Laney Harrison MD [address] [place], [place] [id number] Social History Tobacco Use Types Packs/Day Years [...] often do you attend chur ch or yazidism services? 1 to 4 times per year 08/09/2022 Do you belong to any clubs o r organizations such as moravian groups, unions, fraternal or athletic groups, or [...] Recorded Patient Health Questionnaire-2 Score 0 08/23/2022 [facility] - Occupational Stress [...] to sleep or slept in a senior care (including now)? No 08/09/2022 Comments Unknown Sex [...] Patient on antidepressant monitoring plan No Laney Harrison, MD Baseline PHQ-9 Care Plan Baseline PHQ-9 No Laney Harrison MD documented as of this encounter Procedures Procedure Name Priority Date/Time Associated Diagnosis Comments DIABETIC RETINOPATHY SCREENING - OU - BOTH EYES Routine 12/29/2022 2:45 PM EDT DIABETIC RETINOPATHY SCREENING - OU - BOTH EYES Routine 12/29/2022 2:11 PM EDT documented in this encounter Results * Diabetic Retinopathy Screening - OU - Both Eyes (12/29/2022 2:45 PM EDT) Anatomical Region Laterality Modality Head Other us Laney Harrison MD OPHTH PHOTOGRAPHY Final Result * Diabetic Retinopathy Screening - OU - Both Eyes (12/29/2022 2:11 PM EDT) Anatomical Region Laterality Modality Head Other us Laney Harrison MD OPHTH PHOTOGRAPHY Final Result documented in this encounter Visit Diagnoses Not on filedocumented in this encounter Additional Health Concerns Active Problems Noted Date Diagnosed Date Patient on antidepressant monitoring plan 2022 Baseline PHQ-9 01/16/2023 documented as of this encounter Care Teams Spouting Installer Relationship Specialty Start Date End Date Laney Harrison MD [address] [facility] [place] [address] PCP - General Family Medicine 07/27/22 02/20/24 Laney Harrison MD [address] [facility] [place] [address] PCP - GWYN HERNANDEZ 12/06/23 Laney Harrison MD [address] [facility] [place] [address] PCP - General Family Medicine 03/13/24 05/14/24 Unallocated, [place] [address] PCP - General Family Medicine 05/15/24 Lucila Lopez [facility] [address] [place] [address] Nurse Practitioner Behavioral Health 02/21/24 09/17/24 Juliana Stewart DPM [address] [place] [address] Referring Physician Podiatry 02/21/24 Matt Laguna MD [address] [place] [address] Referring Physician Gastroenterology 02/21/24 Nicol Weber MD [address] [place] [address] Referring Physician Vascular Surgery 02/21/24 Marilu Hutchinson DO [address] [place] [address] Referring Physician Pulmonary Disease 02/21/24 Samantha Rosenthal LPC Therapist Behavioral Health 04/11/24 08/21/24 Michelle Mcintyre, [facility] [address] [place] [address] Finance Admin Behavioral Health 04/08/24 04/09/24 documented as of this encounter
--- OUTSIDE RECORDS SUMMARY | 2024-11-14 20:50 | XMS_ITS | Encounter Summary ---
Author Organization [facility] Address [id number] [place] [address] Care Team Providers Care Registered Respiratory Therapist Name Role Phone Laney Harrison MD Primary Care Provider [phone] Reason for Visit * Reason Onset Date Comments Med Refill 02/07/2024 Encounter Details Date Type Department Care Team (Late st Contact Info) Description 02/07/2024 Refill [facility] [address] [place] [id number] Irene Abreu, RETAIL ASSISTANT MANAGER-QUALITY LAB TECHNICIAN [address] left practice 04/21 [place] [address] Acute saddle pulmonary embolism without acute cor [...] 02/11/2025 10:00 AM EST Office Visit [facility] Vascular [place] [address] [place] [address] Mari Gomez, [address] [place] [address] [place] [address] documented as of this encounter Goals Goal [...] documented as of this encounter Care Teams Registered Respiratory Therapist Relationship Specialty Start Date End Date Laney Harrison MD PCP - General Family Medicine 06/16/17 documented as of this encounter
--- OUTSIDE RECORDS SUMMARY | 2024-11-14 20:50 | XMS_ITS | Encounter Summary ---
Author Organization [facility] Address [address] [place] [address] Care Team Providers Care Creative Consultant Name Role Phone Laney Harrison MD Primary Care Provider [phone] Laney Harrison MD Unavailable Lucila Lopez PMHNP-BC Unavailable Juliana Stewart DPM Unavailable [phone] Matt Laguna MD Unavailable [phone] Nicol Weber MD Unavailable [phone] Marilu Hutchinson DO Unavailable [phone] Laney Harrison MD Primary Care Provider [phone] Samantha Rosenthal CAR STOWER Unavailable Unava ilable Michelle Mcintyre LPCC Unavailable [phone] Unallocated, Gwyn Provider Primary Care Provi adela Reason for Visit * Reason Onset Date Comments Med Refill 06/03/2023 Encounter Details Date Type Department Care Team (Late st Contact Info) Description 06/03/2023 Refill [facility] To Podiatry [address] [place] [address] Alan Hart DPM [address] [place], [place] [address] Hallux rigidus of both feet; Primary osteoarthritis [...] often do you attend chur ch or lutheran services? 1 to 4 times per year 08/09/2022 Do you belong to any clubs o r organizations such as taoist groups, unions, fraternal or athletic groups, or [...] Recorded Patient Health Questionnaire-2 Score 0 08/23/2022 [facility] - Occupational Stress [...] place to sleep or slept in a mcfp (including now)? No 08/09/2022 Comments Unknown Sex and Gender Information Value Date Recorded Sex Assigned at Female 08/08/2022 11:41 AM EDT Legal Sex Female 6:38 PM EDT Gender Identity Female 05/19/2022 6:38 PM EDT Sexual Orientation Straight 08/08/2022 11 :41 AM EDT documented as of this encounter Miscellaneous Notes * Telephone Encounter - Alan Hart DPM - 06/07/2023 1:02 PM EDT No refills ordered. documented in this [...] documented as of this encounter Care Teams Creative Consultant Relationship Specialty Start Date End Date Laney Harrison MD [address] [place] [address] PCP - General Family Medicine 07/27/22 02/20/24 Laney Harrison MD [address] [place] [address] PCP - GWYN HERNANDEZ 12/06/23 Laney Harrison MD [address] [place] [address] PCP - General Family Medicine 03/13/24 05/14/24 Unallocated, [place] [address] PCP - General Family Medicine 05/15/24 Lucila Lopez PMHNP- [address] [place] [address] [address] [place] [address] Nurse Practitioner Behavioral Health 02/21/24 09/17/24 Juliana Stewart DPM [address] [place] [address] Referring Physician Podiatry 02/21/24 Matt Laguna MD [address] [place] [address] Referring Physician Gastroenterology 02/21/24 Nicol Weber MD [address] [place] [address] Referring Physician Vascular Surgery 02/21/24 Marilu Hutchinson DO [address] [place] [address] Referring Physician Pulmonary Disease 02/21/24 Samantha Rosenthal LPC Therapist Behavioral Health 04/11/24 08/21/24 Michelle Mcintyre [facility] [address] [place] [address] Linoleum Layer Apprentice Behavioral Health 04/08/24 04/09/24 documented as of this encounter
--- OUTSIDE RECORDS SUMMARY | 2024-11-14 20:50 | XMS_ITS | Encounter Summary ---
Author Organization [facility] Address [address] [place] [address] Care Team Providers Care Appliance Assembler Name Role Phone Laney Harrison MD Primary Care Provider [phone] Laney Harrison MD Unavailable Lucila Lopez PMHNP- Unavailable Juliana Stewart DPM Unavailable [phone] Matt Laguna MD Unavailable [phone] Nicol Weber MD Unavailable [phone] Marilu Hutchinson DO Unavailable [phone] Laney Harrison MD Primary Care Provider [phone] Samantha Rosenthal OPERATIONS SYSTEMS SPECIALIST Unavailable Unava ilable Michelle Mcintyre LPCC Unavailable [phone] Unallocated, Gwyn Epstein MD Primary Care Provi adela Encounter Details Date Type Department Care Team (Late st Contact Info) Description 06/22/2023 Orders Only [facility] [address] [facility] [place] [address] Unallocated, Gwyn Epstein MD [address] [place], [place] [address] Social History Tobacco Use Types Packs/Day Years [...] How often do you attend chur or samaritan services? 1 to 4 times per year 08/09/2022 Do you belong to any clubs o r organizations such as adventist groups, unions, fraternal or athletic groups, or [...] Recorded Patient Health Questionnaire-2 Score 0 08/23/2022 [facility] - Occupational Stress Questionnaire Answer Date [...] place to sleep or slept in a care home (including now)? No 08/09/2022 Comments Unknown Sex [...] Procedure Name Priority Date/Time Associated Diagnosis Comments ECG 12-LEAD Routine 06/22/2023 4:52 PM EDT documented in this encounter Results * ECG 12 lead (06/22/2023 4:52 PM EDT) [facility]oms Provider Unallocated ECG ORDERABLES Fin al Result documented in this encounter Visit Diagnoses Not on filedocumented in this encounter Additional Health Concerns Active Problems Noted Date Diagnosed Date Patient on antidepressant monitoring plan 2022 Baseline PHQ-9 01/16/2023 documented as of this encounter Care Teams Appliance Assembler Relationship Specialty Start Date End Date Laney Harrison MD [address] [place] [address] PCP - General Family Medicine 07/27/22 02/20/24 Laney Harrison MD [address] [place] [address] PCP - GWYN [place] [facility] 12/06/23 Laney Harrison MD [address] [place] [address] PCP - General Family Medicine 03/13/24 05/14/24 Unallocated, Gwyn Epstein MD [address] [place] [address] PCP - General Family Medicine 05/15/24 Lucila Lopez ELMA- [address] [facility] [address] [place] [address] Nurse Practitioner Behavioral Health 02/21/24 09/17/24 Juliana Stewart DPM [address] [facility] [address] [place] [address] Referring Physician Podiatry 02/21/24 Matt Laguna MD [address] [facility] [address] [place] [address] Referring Physician Gastroenterology 02/21/24 Nicol Weber MD [address] [facility] [address] [place] [address] Referring Physician Vascular Surgery 02/21/24 Marilu Hutchinson DO [address] [place] [address] Referring Physician Pulmonary Disease 02/21/24 Samantha Rosenthal LPC Therapist Behavioral Health 04/11/24 08/21/24 Michelle Mcintyre [facility] [address] [facility] [address] [place] [address] Stemhole Borer And Topper Behavioral Health 04/08/24 04/09/24 documented as of this encounter
--- OUTSIDE RECORDS SUMMARY | 2024-11-14 20:50 | XMS_ITS | Encounter Summary ---
Author Organization [facility] Address [address] [place] [address] Care Team Providers Care Director Supply Name Role Phone Laney Harrison MD Primary Care Provider [phone] Laney Harrison MD Unavailable Lucila Lopez PMHNP-BC Unavailable Juliana Stewart DPM Unavailable [phone] Matt Laguna MD Unavailable Nicol Weber MD Unavailable [phone] Marilu Hutchinson DO Unavailable [phone] Laney Harrison MD Primary Care Provider [phone] Samantha Rosenthal MANAGER TRADE Unavailable Unava ilable Michelle Mcintyre LPCC Unavailable [phone] Unallocated, Gwyn Provider Primary Care Provi adela Reason for Visit * Reason Comments Med Refill Encounter Details Date Type Department Care Team (Late st Contact Info) Description 05/27/2023 Refill [facility] To Pod[facility]ry [address] [place] [id number] Alan Hart, DPM [address] [place], [place] [id number] Hallux rigidus of both feet; Primary osteoarthritis [...] any clubs o r organizations such as tenriism groups, unions, fraternal or athletic groups, or [...] Recorded Patient Health Questionnaire-2 Score 0 08/23/2022 [employer] of Occupat ional [facility] - Occupational Stress Questionnaire Answer Date Recorded [...] place to sleep or slept in a halfway (including now)? No 08/09/2022 Comments Unknown Sex and Gender Information Value Date Recorded Sex Assigned at Female 08/08/2022 11:41 AM EDT Legal Sex Female 6:38 PM EDT Gender Identity Female 05/19/2022 6:38 PM EDT Sexual Orientation Straight 08/08/2022 11 :41 AM EDT documented as of this encounter Miscellaneous Notes * Telephone Encounter - Alan Hart DPM - 05/27/2023 1:30 PM EDT No refills ordered. documented in [...] documented as of this encounter Care Teams Director Supply Relationship Specialty Start Date End Date Laney Harrison MD [address] [place] [address] PCP - General Family Medicine 07/27/22 02/20/24 Laney Harrison MD [address] [place] [address] PCP - GWYN HERNANDEZ 12/06/23 Laney Harrison MD [address] [place] [address] PCP - General Family Medicine 03/13/24 05/14/24 UnallocatGwyn awan MD [address] [place] [address] PCP - General Family Medicine 05/15/24 Lucila Lopez PMHNP- [address] [place] [address] [address] [place] [address] Nurse Practitioner Behavioral Health 02/21/24 09/17/24 Juliana Stewart DPM [address] [place] [address] Referring Physician Podiatry 02/21/24 Matt Laguna MD [address] [place] [address] Referring Physician Gastroenterology 02/21/24 Nicol Weber MD [address] [place] [address] Referring Physician Vascular Surgery 02/21/24 Marilu Hutchinson DO [address] [place] [address] Referring Physician Pulmonary Disease 02/21/24 Samantha Rosenthal LPC Therapist Behavioral Health 04/11/24 08/21/24 Michelle Mcintyre [facility] [address] [place] [address] Land Acquisition Analyst Behavioral Health 04/08/24 04/09/24 documented as of this encounter
--- OUTSIDE RECORDS SUMMARY | 2024-11-14 20:50 | XMS_ITS | Encounter Summary ---
Author Organization [facility] Address [address] [place] [address] Care Team Providers Care Bottle Filler Name Role Phone Laney Harrison MD Unavailable Lucila Lopez PMHNP-BC Unavailable Juliana Stewart DPM Unavailable Matt Laguna MD Unavailable [phone] Nicol Weber MD Unavailable Marilu Hutchinson DO Unavailable [phone] Samantha Rosenthal LPC Unavailable Unava ilable Unallocated, Noms Provider Primary Care Provi adela Reason for Visit * Reason Comments Med Refill Encounter Details Date Type Department Care Team (Late st Contact Info) Description 05/15/2024 Refill [facility] [address] [facility] [address] [place] [address] Juliana Stewart, DPM [address] [facility] [address] [place] [address] Primary osteoarthritis, left ankle and foot Social [...] often do you attend chur ch or druze services? Never 10/17/2023 Do you belong to any clubs o r organizations such as yarsanism groups, unions, fraternal or athletic groups, or [...] Recorded Patient Health Questionnaire-2 Score 0 08/23/2022 [facility] of Occupat ional [facility] [...] place to sleep or slept in a group home (including now)? No 08/09/2022 Housing Stability Vital [...] were you homeless or living in a group home (including now)? No 10/17/2023 Education Answer Date [...] encounter Miscellaneous Notes * Telephone Encounter - Juliana Stewart DPM - 05/16/2024 8:26 AM EDT Refill request was approved. Prescription was sent to her preferred pharmacy. * Telephone Encounter - Melanie Gastelum MA - 05/15/2024 4:41 PM EDT Please advise patient refill request, thank you. documented in this encounter Plan of Treatment [...] documented as of this encounter Care Teams Bottle Filler Relationship Specialty Start Date End Date Laney Harrison MD [address] [place] [address] PCP - GWYN HERNANDEZ 12/06/23 Unallocated, Gwyn Epstein MD [address] [place] [address] PCP - General Family Medicine 05/15/24 Lucila Lopez PMHNP- [address] [place] [address] Nurse Practitioner Behavioral Health 02/21/24 09/17/24 Juliana Stewart DPM [address] [place] [address] Referring Physician Podiatry 02/21/24 Matt Laguna MD [address] [place] [address] Referring Physician Gastroenterology 02/21/24 Nicol Weber MD [address] [place] [address] Referring Physician Vascular Surgery 02/21/24 Marilu Hutchinson DO [address] [place] [address] Referring Physician Pulmonary Disease 02/21/24 Samantha Rosenthal LPC Therapist Behavioral Health 04/11/24 08/21/24 documented as of this encounter
--- OUTSIDE RECORDS SUMMARY | 2024-11-14 20:50 | XMS_ITS | Encounter Summary ---
Author Organization [facility] Address [facility] [place] [address] Care Team Providers Care Brim Raiser Name Role Phone Natalie Campbell MD Primary Care Provider [phone] Laney Harrison MD Primary Care Provider [phone] Source Comments In the event this information is protected by the Federal Confidentiality of Alcohol and Drug AbusePatient Records regulations: The Federal rules restrict any use of the information to criminally investigate or prosecute any alcohol or drug abuse patient.[facility] Encounter Details Date Type Department Care Team (Late st Contact Info) Description 04/27/2022 Patient Msg Colorectal Surgery [address] [place], [place] [id number] Provider, Ccf surgery with Dr Hernandez Social History Tobacco Use Types Packs/Day Years [...] place to sleep or slept in a long-term (including now)? No 12/25/2021 Area Deprivation Index Answer Date Corwin rded National Score (1-100), lower number is lower ri sk Not on file 02/13/2020 State Score (1-10), lower number is lower risk N ot on file 02/13/2020 Data from: https://www.neighborhoodatlas.medicine.[facility].edu/. Last address used for calculation Not on [...] on filedocumented in this encounter Care Teams Brim Raiser Relationship Specialty Start Date End Date Natalie Campbell MD [address] [place] [address] PCP - General Family Medicine 10/04/12 06/01/22 Laney Harrison MD [address] [place] [address] PCP - General Family Medicine 06/02/22 documented as of this encounter
--- OUTSIDE RECORDS SUMMARY | 2024-11-14 20:50 | XMS_ITS | Encounter Summary ---
Author Organization [facility] Address [facility] [place] [address] Care Team Providers Care Fulling Machine Operator Name Role Phone Natalie Campbell MD Primary Care Provider [phone] Laney Harrison MD Primary Care Provider [phone] Source Comments In the event this information is protected by the Federal Confidentiality of Alcohol and Drug AbusePatient Records regulations: The Federal rules restrict any use of the information to criminally investigate or prosecute any alcohol or drug abuse patient.[facility] Encounter Details Date Type Department Care Team (Late st Contact Info) Description 04/28/2022 Patient Msg Colorectal Surgery [address] [place], [place] [id number] Provider, Ccf new surgery date Social History Tobacco Use Types Packs/Day Years [...] slept in a mcfp (including now)? No 12/25/2021 Area Deprivation Index Answer Date Corwin rded National Score (1-100), lower number is lower ri sk Not on file 02/13/2020 State Score (1-10), lower number is lower risk N ot on file 02/13/2020 Data from: https://www.neighborhoodatlas.medicine.[facility].edu/. Last address used for calculation Not on [...] of Assessment Author No 01/03/2022 11:13 AM Ceira Mccabe RN * Do you have serious [...] Assessment Author No 01/03/2022 11:13 AM Ciera Mccaeb RN documented as of this encounter Mental Status * Because of a physical, mental, or emotional condition, do you have serious difficulty concentrating, remembering, or making decisions? Answer Entry Date Author No 01/03/2022 11:13 AM Ciera Mccabe RN documented in this encounter Plan of Treatment Not on file documented as of this encounter Visit Diagnoses Not on filedocumented in this encounter Care Teams Fulling Machine Operator Relationship Specialty Start Date End Date Natalie Campbell MD [address] [place] [address] PCP - General Family Medicine 10/04/12 06/01/22 Laney Harrison MD [address] [place] [address] PCP - General Family Medicine 06/02/22 documented as of this encounter
--- OUTSIDE RECORDS SUMMARY | 2024-11-14 20:51 | XMS_ITS | Patient Health Record ---
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
--- OUTSIDE RECORDS SUMMARY | 2024-11-14 20:51 | XMS_ITS | Patient Health Record ---
Author Organization [employer] [facility] Address [address] [place] [address] Care Team Providers Care Warehouse Packer Name Role Phone Dr. Charles Mackay Primary Care Provider Reason For Referral No Information Plan Of Treatment No Information Insurance Providers Payer Name Payer Address Payer Phone Subscriber Number Group Number Insured Name Patient Relationship to Insured Coverage Start Date Coverage End Date [employer] [place] DQ Terminated 24 [address] [place] [address] [id number] CHIOMA HYLTON Self - patient is the insured 5 [employer] [place] BCBS Termed 2024 [address] [place] [address] [id number] CHIOMA HYLTON Self - patient is the insured 5 [employer] [address] [address] [place] [address] [phone] [id number] CHIOMA HYLTON Self - patient is the insured 5
--- OUTSIDE RECORDS SUMMARY | 2024-11-14 20:51 | XMS_ITS | Encounter Summary ---
Author Organization [facility] Address [address] [place] [address] Care Team Providers Care Print Production Coordinator Name Role Phone Natalie Campbell MD Primary Care Provider [phone] Laney Harrison MD Primary Care Provider [phone] Source Comments In the event this information is protected by the Federal Confidentiality of Alcohol and Drug AbusePatient Records regulations: The Federal rules restrict any use of the information to criminally investigate or prosecute any alcohol or drug abuse patient.[facility] Encounter Details Date Type Department Care Team (Late st Contact Info) Description 07/10/2014 Patient Msg Medical Records [address] [place] [address] Provider, Ccf Appointment Cancellation Request Social History [...] hearing? Answer Date of Assessment Author No 04/12/2014 10:33 AM Shira Oliver MA * Are you blind or do you have serious difficulty seeing, even when wearing glasses? Answer Date of Assessment Author No 04/12/2014 10:33 AM Shira Oliver MA * Do you have serious difficulty walking or climbing stairs? Answer Date of Assessment Author No 04/12/2014 10:33 AM Shira Oliver MA * Do you have difficulty dressing or bathing? Answer Date of Assessment Author No 04/12/2014 10:33 AM Shira Oliver MA * Because of a physical, mental, or emotional condition, do you have difficulty doing errands alone such as visiting a doctor's office or shopping? Answer Date of Assessment Author No 04/12/2014 10:33 AM Shira Oliver MA documented as of this encounter Mental Status * Because of a physical, mental, or emotional condition, do you have serious difficulty concentrating, remembering, or making decisions? Answer Entry Date Author No 04/12/2014 10:33 AM Shira Oliver MA documented in this encounter Plan of Treatment Not on file documented as of this encounter Visit Diagnoses Not on filedocumented in this encounter Additional Health Concerns Infection Onset Date Last Indicated Resolved Time COVID-19 Rule-Out 12/24/2021 12/24/2021 12/24/2021 3:16 PM EDT documented as of this encounter Care Teams Print Production Coordinator Relationship Specialty Start Date End Date Natalie Campbell MD [address] [place] [address] PCP - General Family Medicine 10/04/12 06/01/22 Laney Harrison MD [address] [place] [address] PCP - General Family Medicine 06/02/22 documented as of this encounter
--- OUTSIDE RECORDS SUMMARY | 2024-11-14 20:51 | XMS_ITS | Encounter Summary ---
Author Organization [facility] Address [facility] [place] [address] Care Team Providers Care Boilermaker Name Role Phone Natalie Campbell MD Primary Care Provider [phone] Laney Harrison MD Primary Care Provider [phone] Source Comments In the event this information is protected by the Federal Confidentiality of Alcohol and Drug AbusePatient Records regulations: The Federal rules restrict any use of the information to criminally investigate or prosecute any alcohol or drug abuse patient.[facility] Encounter Details Date Type Department Care Team (Late st Contact Info) Description 10/20/2017 Get Medical Advice Orthopaedics [address] [place], [place] [id number] Anthony Marte MD [address] [place], [place] [phone] RE: Non-Urgent Medical Question Social History Tobacco Use Types Packs/Day [...] 5:01 PM EDT Sexual Orientation Straight 07/17/2021 5 :01 PM EDT documented as of this encounter Functional Status * Are you deaf or do you have serious difficulty hearing? Answer Date of Assessment Author No 10/20/2016 4:45 PM EDT Tiffanie Payan RN * Are you blind or do you have serious difficulty seeing, even when wearing glasses? Answer Date of Assessment Author No 10/20/2016 4:45 PM EDT Tiffanie Payan RN * Do you have serious difficulty walking or climbing stairs? Answer Date of Assessment Author Yes 10/20/2016 4:45 PM EDT Tiffanie Payan RN * Do you have difficulty dressing or bathing? Answer Date of Assessment Author Yes 10/20/2016 4:45 PM EDT Tiffanie Payan RN * Because of a physical, mental, or emotional condition, do you have difficulty doing errands alone such as visiting a doctor's office or shopping? Answer Date of Assessment Author No 10/20/2016 4:45 PM EDT Tiffanie Payan RN documented as of this encounter Mental Status * Because of a physical, mental, or emotional condition, do you have serious difficulty concentrating, remembering, or making decisions? Answer Entry Date Author Yes 10/20/2016 4:45 PM EDT Tiffanie Payan RN documented in this encounter Plan of Treatment Not on file documented as of this encounter Visit Diagnoses Not on filedocumented in this encounter Additional Health Concerns Infection Onset Date Last Indicated Resolved Time COVID-19 Rule-Out 12/24/2021 12/24/2021 12/24/2021 3:16 PM EDT documented as of this encounter Care Teams Boilermaker Relationship Specialty Start Date End Date Natalie Campbell MD [address] [place] [address] PCP - General Family Medicine 10/04/12 06/01/22 Laney Harrison MD [address] [place] [address] PCP - General Family Medicine 06/02/22 documented as of this encounter
--- OUTSIDE RECORDS SUMMARY | 2024-11-14 20:51 | XMS_ITS | Encounter Summary ---
Author Organization [facility] Address [address] [place] [address] Care Team Providers Care Fish Cleaner Name Role Phone Laney Harrison MD Primary Care Provider [phone] Laney Harrison MD Unavailable Lucila Lopez PMHNP-BC Unavailable Juliana Stewart DPM Unavailable [phone] Matt Laguna MD Unavailable [phone] Nicol Weber MD Unavailable [phone] Marilu Hutchinson DO Unavailable [phone] Laney Harrison MD Primary Care Provider [phone] Samantha Rosenthal BUSINESS INSIGHT AND ANALYTICS MANAGER Unavailable Unava ilable Michelle Mcintyre LPCC Unavailable [phone] Unallocated, Noms Provider Primary Care Provi adela Reason for Referral * Imaging (Routine) - Closed Specialty Diagnoses / Procedures Referred By Contac t Referred To Contact Radiology Diagnoses Lung nodules Procedures CT chest wo IV contrast Laney Harrison MD [address] [place] [address] Phone: tel: fax: Referral ID Status Reason Start Date Expiration Date Visits Re quested Visits Authorized [id number] Closed 05/04/2023 10/31/2023 1 1 Encounter Details Date Type Department Care Team (Late st Contact Info) Description 05/04/2023 Orders Only [facility] [address] [facility] [address] [facility] [place] [address] Laney Harrison MD [address] [place], [place] [id number] Lung nodules (Primary Dx) Social History Tobacco Use Types Packs/Day Years Used Date Smoking Tobacco: Never Smokeless Tobacco: Never Alcohol Use Standard Drinks/Week Comments Never 0 (1 standard drink = 0.6 oz pur e alcohol) Humiliation, Afraid, Rape, and Kick questionnair e [...] How often do you attend chur or faith services? 1 to 4 times per year 08/09/2022 Do you belong to any clubs o r organizations such as voodoo groups, unions, fraternal or athletic groups, or [...] Recorded Patient Health Questionnaire-2 Score 0 08/23/2022 [facility] of Occupat ional Health - Occupational Stress [...] a group home (including now)? No 08/09/2022 Comments Unknown Sex and Gender Information Value Date Recorded Sex Assigned at Female 08/08/2022 11:41 AM EDT Legal Sex Female 6:38 PM EDT Gender Identity Female 05/19/2022 6:38 PM EDT Sexual Orientation Straight 08/08/2022 11 :41 AM EDT documented as of this encounter Plan of Treatment Scheduled Orders Name Type Priority Associated Diagnoses Orde r Schedule CT chest wo IV contrast Imaging Routine Lung nodules Expected: 05/04/2024, Expires: 05/04/2024 documented as of this encounter Goals Goal Patient Goal Type Associated Problems Recent Progress Patient-Stated? Author Help patient manage antidepressant medication Care Plan Patient on antidepressant monitoring plan No Laney Harrison MD Baseline PHQ-9 Care Plan Baseline PHQ-9 Laney Christy MD documented as of this encounter Visit Diagnoses Diagnosis Lung nodules- Primary Other diseases of lung, not elsewhere classified documented in this encounter Additional Health Concerns Active Problems Noted Date Diagnosed Date Patient on antidepressant monitoring plan 2022 Baseline PHQ-9 01/16/2023 documented as of this encounter Care Teams Fish Cleaner Relationship Specialty Start Date End Date Laney Harrison MD [address] [facility] [place] [address] PCP - General Family Medicine 07/27/22 02/20/24 Laney Harrison MD [address] [place] [address] PCP - GWYN HERNANDEZ 12/06/23 Laney Harrison MD [address] [facility] [place] [address] PCP - General Family Medicine 03/13/24 05/14/24 UnallocatGwyn awan MD [address] [place] [address] PCP - General Family Medicine 05/15/24 Lucila Lopez PMHNP- [address] [place] [address] Nurse Practitioner Behavioral Health 02/21/24 09/17/24 Juliana Stewart DPM [address] [place] [address] Referring Physician Podiatry 02/21/24 Matt Laguna MD [address] [place] [address] Referring Physician Gastroenterology 02/21/24 Nicol Weber MD [address] [place] [address] Referring Physician Vascular Surgery 02/21/24 Marilu Hutchinson DO [address] [address] Referring Physician Pulmonary Disease 02/21/24 Samantha Rosenthal LPC Therapist Behavioral Health 04/11/24 08/21/24 Michelle Mcintyre [facility] [address] [place] [address] System Architect Behavioral Health 04/08/24 04/09/24 documented as of this encounter
--- OUTSIDE RECORDS SUMMARY | 2024-11-14 20:51 | XMS_ITS | Encounter Summary ---
Author Organization [facility] Address [address] [place] [address] Care Team Providers Care Senior Biostatistician/Group Leader Name Role Phone Natalie Campbell MD Primary Care Provider [phone] Laney Harrison MD Primary Care Provider [phone] Source Comments In the event this information is protected by the Federal Confidentiality of Alcohol and Drug AbusePatient Records regulations: The Federal rules restrict any use of the information to criminally investigate or prosecute any alcohol or drug abuse patient.[facility] Encounter Details Date Type Department Care Team (Late st Contact Info) Description 07/09/2014 Patient Msg Medical Records [address] [place] [address] Provider, Ccf Appointment Cancellation Request Social History [...] as of this encounter Care Teams Senior Biostatistician/Group Leader Relationship Specialty Start Date End Date Natalie Campbell MD [address] [place] [address] PCP - General Family Medicine 10/04/12 06/01/22 Laney Harrison MD [address] [place] [address] PCP - General Family Medicine 06/02/22 documented as of this encounter
--- OUTSIDE RECORDS SUMMARY | 2024-11-14 20:51 | XMS_ITS | Clinical Summary ---
Author Organization [facility] Address [address], [address] [place] [address] Care Team Providers Care Senior Geologist Name Role Phone Unavailable Primary Care Provider Unavailabl e Allergies Active Allergy Reactions Criticality Noted Date Comments Diphenhydramine Other (See Comments) 06/19/2024 Hyperactivity level Gabapentin Anaphylaxis High 06/19/2024 Meperidine Hives 06/19/2024 Metronidazole Rash,Hallucinations Low 06/19/2024 Medications amitriptyline (ELAVIL) 10 MG tablet Take 2.5 tablets by mouth nightly Active ammonium lactate (AMLACTIN) 12 % cream Apply topically in the morning and at bedtime Apply topically as needed. Active cyclobenzaprine (FLEXERIL) 10 MG tablet Take 1 tablet by mouth nightly Active lisinopril (PRINIVIL;ZESTR IL) 10 MG tablet Take 1 tablet by mouth daily Active metoprolol tartrate (LOPRESSOR) 25 MG tablet Take 1 tablet by mouth 2 times daily Active mirabegron (MYRBETRIQ) 50 MG TB24 Take 50 mg by mouth daily Active mirtazapine (REMERON) 30 MG tablet Take 1.5 tablets by mouth nightly Active omeprazole (PRILOSEC) 20 MG delayed release capsule Take 2 capsules by mouth in the morning and at bedtime Active RIVAROXABAN PO Take 10 mg by mouth Daily with supper P Active rOPINIRole (REQUIP) 2 MG tablet Take 1 tablet by mouth 2 times daily Active venlafaxine (EFFEXOR XR) 150 MG extended release capsule Take 2 capsules by mouth daily Active Cyanocobalamin 5000 MCG TBDP Take 1 tablet by mouth daily 4 Active pregabalin (LYRICA) 75 MG capsule Take 1 capsule by mouth 2 times daily. 5 Active aspirin 81 MG chewable tablet Take 1 tablet by mouth daily 30 tablet 3 Active rosuvastatin (CRESTOR) 40 MG tablet Take 1 tablet by mouth nightly 30 tablet 3 5 Active Active Problems Problem Noted Date Diagnosed Date History of DVT (deep vein thrombosis) 06/23/2024 Deep vein thrombosis (DVT) of lower extremity Cerebrovascular accident (CV A) due to stenosis of left posterior cerebral artery 06/20/2024 Homonymous hemianopsia, right 06/20/2024 Pain of left calf 06/20/2024 Cerebral infarction 06/19/2024 Social History Tobacco Use Types Packs/Day Years Used Date Smoking Tobacco: Never Smokeless Tobacco: Never Tobacco Cessation:Counseling Given: Not Answered Alcohol Use Standard Drinks/Week Comments Never 0 (1 standard drink = 0.6 oz pur e alcohol) [facility] Utilities Answer Date Recorded In the past 12 months has th e [employer], gas, oil, or water [employer] threatened to shut off services in your home? No 06/19/2024 AUDIT-C Answer Date Recorded Q1: How often do you have a drink containing alc ohol? Never 06/19/2024 Average Number of Drinks Not on file 025 Frequency of Binge Drinking Not on file 06/05 Hunger Vital Sign Answer Date Recorded Within the past 12 months, y ou worried that your food would run out before you got the money to buy more. Never true 06/20/19 25 Within the past 12 months, t he food you bought just didn't last and you didn't have money to get more. Never true 06/19/2024 PRAPARE - Transportation Answer Date Re corded In the past 12 months, has l ack of transportation kept you from medical appointments or from getting medications? No 06/05 In the past 12 months, has l ack of transportation kept you from meetings, work, or from getting things needed for daily living? No 06/19/2024 Housing Stability Vital Sign Answer Luigi e Recorded In the last 12 months, was t here a time when you were not able to pay the mortgage or rent on time? No 06/19/2024 In the past 12 months, how m any times have you moved where you were living? 0 06/19/2024 At any time in the past 12 m [facility], were you homeless or living in a snf (including now)? No 06/19/2024 Food Insecurity Answer Date Recorded Within the past 12 months, y ou worried that your food would run out before you got the money to buy more. 1 06/19/2024 Within the past 12 months, t he food you bought just didn't last and you didn't have money to get more. 1 06/19/2024 Interpersonal Safety Domain Source: IP Abuse Scr eening Answer Date Recorded Physical abuse Denies 06/19/2024 Verbal abuse Denies 06/19/2024 Emotional abuse Denies 06/19/2024 Financial abuse Denies 06/19/2024 Sexual abuse Denies 06/19/2024 Comments No Sex and Gender Information Value Date Recorded Sex Assigned at Not on file Legal Sex Female 6:33 PM EST Gender Identity Not on file Sexual Orientation Not on file Last Filed Vital Signs Vital Sign Reading Time Taken Comments Blood Pressure 137/61 06/25/2024 11:55 AM EDT Pulse 74 06/25/2024 11:55 AM EDT Temperature 37 C (98.6 F) 06/25/2024 11:55 AM EDT Respiratory Rate 16 06/25/2024 11:55 AM EDT Oxygen Saturation 98% 06/25/2024 11:55 AM EDT Inhaled Oxygen Concentration - - Weight 112.7 kg (248 lb 8 oz) 2024 6:00 AM EDT Height 155 cm (5' 1.02 ) 06/19/2024 11:46 PM EDT Body Mass Index 46.92 06/19/2024 11:46 PM EDT Plan of Treatment Upcoming Encounters Date Type Department Care Team (Late st Contact Info) Description 12/18/2024 2:30 PM EDT Office Visit [facility] [address], [address] [place] [id number] Shruti Mckinney MD [address] [place] [address] 6-8 month NAN follow up Health Maintenance Due Date Last Done Comments Depression Screen 1973 HIV screen 1976 Hepatitis C screen 06/25/1979 DTaP/Tdap/Td vaccine (1 - Tdap) 1980 Pap smear 1982 Cervical cancer screen 06/25/1991 HPV (without or with Pap) 06/25/1991 Colonoscopy 2006 Colorectal Cancer Screen 2006 FIT/FOBT: Average risk 2006 Fecal-DNA (Cologuard): Average risk 2006 Sigmoidoscopy/CT colonography 2006 Pneumococcal 50+ years Vaccine (2 of 2 - PCV) 02/03/2017 02/04/2016 Shingles vaccine (2 of 2) 03/15/2020 01/19/2020 Respiratory Syncytial Virus (RSV) or age 60 yrs+ (1 - Risk 60-74 years 1-dose series) 2021 Flu vaccine (#1) 10/05/2024 01/23/2024, , 12/28/2021, Additional history exists COVID-19 Vaccine ( - 2024- season) 2024 06/16/2020, 05/19/2020 A1C test (Diabetic or Prediabetic) 06/19/2025 06/19/2024 Lipids 06/19/2025 06/19/2024 GFR test (Diabetes, CKD 3-4, OR last GFR 15-59) 06/25/2025 06/25/2024, 2024, 06/23/2024, Additional history exists Breast cancer screen 04/11/2026 04/11/2024, 07/30/2021, 11/27/2019, Additional history exists Hepatitis A vaccine Aged Out No longe r eligible based on patient's age to complete this topic Hepatitis B vaccine Aged Out No longe r eligible based on patient's age to complete this topic Hib vaccine Aged Out No longer eligi ble based on patient's age to complete this topic Meningococcal (ACWY) vaccine Aged Out No longer eligible based on patient's age to complete this topic Meningococcal B vaccine Aged Out No l onger eligible based on patient's age to complete this topic Polio vaccine Aged Out No longer elig ible based on patient's age to complete this topic Procedures Procedure Name Priority Date/Time Associated Diagnosis Comments BASIC METABOLIC PANEL W/ REFLEX TO MG FOR LOW K Routine 06/25/2024 6:49 AM EDT LIPID PANEL Stat [facility] Label print 06/19/2024 8:05 PM EDT HEMOGLOBIN A1C Stat [facility] Label print 06/19/2024 8:05 PM EDT from Last 3 Months or Most Recently Relevant to Health Maintenance Results * (ABNORMAL) Basic Metabolic Panel w/ Reflex to MG (06/25/2024 6:49 AM EDT) Sodium 141 136 - 145 mmol/L 06/25/2024 6:49 AM EDT [facility] Potassium 4.7 3.7 - 5.3 mmol/L 06/25/2024 6:49 AM EDT [facility] Chloride 105 98 - 107 mmol/L 06/25/2024 6:49 AM EDT [facility] CO2 26 20 - 31 mmol/L 06/25/2024 6:49 AM EDT [facility] Anion Gap 10 9 - 16 mmol/L 06/25/2024 6:49 AM EDT [facility] Glucose 113(H) 74 - 99 mg/dL 06/25/2024 6:49 AM EDT [facility] BUN 25(H) 8 - 23 mg/dL 06/25/2024 6:49 AM EDT [facility] Creatinine 1.2(H) 0.6 - 0.9 mg/dL 06/25/2024 6:49 AM EDT [facility] Est, Glom Filt Rate 51(L) >60 mL/min/1. 73m2 06/25/2024 6:49 AM EDT [facility] Comment: These results are not intended for use in patients <18 years of age. eGFR results are calculated without a race factor using the 2020 CKD-EPI equation. Careful clinical correlation is recommended, particularly when comparing to results calculated using previous equations. The CKD-EPI equation is less accurate in patients with extremes of muscle mass, extra-renal metabolism of creatine, excessive creatine ingestion, or following therapy that affects renal tubular secretion. Calcium 9.0 8.6 - 10.4 mg/dL 06/25/2024 6:49 AM EDT [facility] Blood BLOOD SPECIMEN / Unknown 06/25/2024 6:49 AM EDT 06/25/2024 7:17 AM EDT us Eliel Cervantes MD CHEMISTRY ORDERABLES Final Result Performing Organization Address [facility] Co de Phone Number [facility] [address] [place] [address] * Hemoglobin A1c (06/19/2024 8:05 PM EDT) Hemoglobin A1C 5.7 4.0 - 6.0 % 06/19/2024 8:05 PM EDT [facility] Estimated Avg Glucose 117 mg/dL 06/19/2024 8:05 PM EDT [facility] Comment: The ADA and AACC recommend providing the estimated average glucose result to permit better patient understanding of their HBA1c result. Blood BLOOD SPECIMEN / Unknown 06/19/2024 8:05 PM EDT 06/19/2024 8:05 PM EDT Zoila Lynn MD CHEMISTRY ORDERABLES Final R esult Performing Organization Address [facility]/ZIP Co de Phone Number [facility] [address] [place] [address], [facility] [phone] * Lipid Panel (06/19/2024 8:05 PM EDT) Cholesterol, Total 146 0 - 199 mg/dL 06/19/2024 8:05 PM EDT [facility] Comment: Cholesterol Guidelines: <200 Desirable 200-240 Borderline >240 Undesirable HDL 50 >40 mg/dL 06/19/2024 8:05 PM EDT [facility] Comment: HDL Guidelines: <40 Undesirable 40-59 Borderline >59 Desirable LDL Cholesterol 78 0 - 100 mg/dL 06/19/2024 8:05 PM EDT [facility] Comment: LDL Guidelines: <100 Desirable 100-129 Near to/above Desirable 130-159 Borderline >159 Undesirable Direct (measured) LDL and calculated LDL are not interchangeable tests. Chol/HDL Ratio 2.9 06/19/2024 8:05 PM EDT [facility] Triglycerides 90 <150 mg/dL 06/19/2024 8:05 PM EDT [facility] Comment: Triglyceride Guidelines: <150 Desirable 150-199 Borderline 200-499 High >499 Very high Based on AHA Guidelines for fasting triglyceride, December 2011. VLDL 18 1 - 30 mg/dL 06/19/2024 8:05 PM EDT [facility] Blood BLOOD SPECIMEN / Unknown 06/19/2024 8:05 PM EDT 06/19/2024 8:05 PM EDT us Zoila Lynn MD CHEMISTRY ORDERABLES Final R esult [facility] [address] [phone] from Last 3 Months or Most Recently Relevant to Health Maintenance Insurance [facility] MEDICAID Advance Directives * Full Code (Latest Code Status on File) Date Activated Date Inactivated Comments 06/19/2024 7:45 PM 06/25/2024 4:35 PM
--- OUTSIDE RECORDS SUMMARY | 2024-11-14 20:51 | XMS_ITS | Encounter Summary ---
Author Organization [facility] Address [address] [place] [address] Care Team Providers Care Transformer Assembly Supervisor Name Role Phone Laney Harrison MD Primary Care Provider [phone] Laney Harrison MD Unavailable Lucila Lopez PMHNP- Unavailable [phone] Juliana Stewart DPM Unavailable [phone] Matt Laguna MD Unavailable [phone] Nicol Weber MD Unavailable [phone] Marilu Hutchinson DO Unavailable [phone] Laney Harrison MD Primary Care Provider [phone] Samantha Rosenthal COMPUTER SYSTEMS ARCHITECT Unavailable Unava ilable Michelle Mcintyre LPCC Unavailable [phone] Unallocated, Gwyn Provider Primary Care Provi adela Encounter Details Date Type Department Care Team (Late st Contact Info) Description 01/26/2023 Abstract [facility] [address] [place] [address] Laney Harrison MD [address] [place] [address] Social History Tobacco Use Types [...] week 08/09/2022 How often do you attend [facility] or yarsanism services? 1 to 4 times per year 08/09/2022 Do you belong to any clubs o r organizations such as mormon groups, unions, fraternal or athletic groups, or [...] Recorded Patient Health Questionnaire-2 Score 0 08/23/2022 [place] [facility] Occupat ional Health - Occupational Stress [...] money to buy more. Never true 08/10/19 Within the past 12 months, t he [...] slept in a long-term (including now)? No 08/09/2022 Comments Unknown Sex [...] documented as of this encounter Care Teams Transformer Assembly Supervisor Relationship Specialty Start Date End Date Laney Harrison MD [address] [place] [address] PCP - General Family Medicine 07/27/22 02/20/24 Laney Harrison MD [address] [place] [address] PCP - GWYN HERNANDEZ 12/06/23 Laney Harrison MD [address] [place] [address] PCP - General Family Medicine 03/13/24 05/14/24 Unallocatlv, Gwyn Epstein MD [address] [place] [address] PCP - General Family Medicine 05/15/24 Lucila Lopez PMHNP- [address] [facility] [address] [place] [address] Nurse Practitioner Behavioral Health 02/21/24 09/17/24 Juliana Stewart DPM [address] [place] [address] Referring Physician Podiatry 02/21/24 Matt Laguna MD [address] [place] [address] Referring Physician Gastroenterology 02/21/24 Nicol Weber MD [address] [place] [address] Referring Physician Vascular Surgery 02/21/24 Marilu Hutchinson DO [address] [place] [address] Referring Physician Pulmonary Disease 02/21/24 Samantha Rosenthal LPC Therapist Behavioral Health 04/11/24 08/21/24 Michelle Mcintyre [facility] [address] [place] [address] Livestock Farm Manager Behavioral Health 04/08/24 04/09/24 documented as of this encounter
--- OUTSIDE RECORDS SUMMARY | 2024-11-14 20:51 | XMS_ITS | Encounter Summary ---
Author Organization [facility] Address [address] [place] [address] Care Team Providers Care Blister Rust Eradicator Name Role Phone Laney Harrison MD Primary Care Provider [phone] Laney Harrison MD Unavailable Lucila Lopez PMHNP- Unavailable [phone] Juliana Stewart DPM Unavailable [phone] Matt Laguna MD Unavailable [phone] Nicol Weber MD Unavailable [phone] Marilu Hutchinson DO Unavailable [phone] Laney Harrison MD Primary Care Provider [phone] Samantha Rosenthal INSPECTOR FIBROUS WALLBOARD Unavailable Unava ilable Michelle Mcintyre LPCC Unavailable [phone] Unallocated, Gwyn Provider Primary Care Provi adela Encounter Details Date Type Department Care Team (Late st Contact Info) Description 01/14/2023 Abstract [facility] [address] [place] [address] Laney Harrison MD [address] [place] [address] Social History Tobacco Use Types [...] week 08/09/2022 How often do you attend [facility] or mosque services? 1 to 4 times per year 08/09/2022 Do you belong to any clubs o r organizations such as restorationism groups, unions, fraternal or athletic groups, or [...] Recorded Patient Health Questionnaire-2 Score 0 08/23/2022 [place] of Occupat ional [facility] - Occupational Stress Questionnaire Answer [...] on filedocumented in this encounter Care Teams Blister Rust Eradicator Relationship Specialty Start Date End Date Laney Harrison MD [address] [place] [address] PCP - General Family Medicine 07/27/22 02/20/24 Laney Harrison MD [address] [facility] [place] [id number] PCP - GWYN HERNANDEZ 12/06/23 Laney Harrison MD [address] [place], [place] [address] PCP - General Family Medicine 03/13/24 05/14/24 UnallocatGwyn awan MD [address] [place] [address] PCP - General Family Medicine 05/15/24 Lucila Lopez [facility] [address] [facility] [address] [place] [address] Nurse Practitioner Behavioral Health 02/21/24 09/17/24 Juliana Stewart DPM [address] [facility] [address] [place] [address] Referring Physician Podiatry 02/21/24 Matt Laguna MD [address] [place] [address] Referring Physician Gastroenterology 02/21/24 Nicol Weber MD [address] [place] [address] Referring Physician Vascular Surgery 02/21/24 Marilu Hutchinson DO [address] [place] [address] Referring Physician Pulmonary Disease 02/21/24 Samantha Rosenthal LPC Therapist Behavioral Health 04/11/24 08/21/24 Michelle Mcintyre, [facility] [address] [place] [address] Environmental Marketer Behavioral Health 04/08/24 04/09/24 documented as of this encounter
--- OUTSIDE RECORDS SUMMARY | 2024-11-14 20:51 | XMS_ITS | Encounter Summary ---
Author Organization [facility] Address [address] [place] [address] Care Team Providers Care Permaculture Designer Name Role Phone Laney Harrison MD Primary Care Provider [phone] Laney Harrison MD Unavailable Lucila Lopez PMHNP- Unavailable [phone] Juliana Stewart DPM Unavailable [phone] Matt Laguna MD Unavailable [phone] Nicol Weber MD Unavailable [phone] Marilu Hutchinson DO Unavailable [phone] Laney Harrison MD Primary Care Provider [phone] Samantha Rosenthal OVEN ATTENDANT Unavailable Unava ilable Michelle Mcintyre LPCC Unavailable [phone] Unallocated, Gwyn Provider Primary Care Provi adela Encounter Details Date Type Department Care Team (Late st Contact Info) Description 08/23/2022 Abstract [facility] [address] [place] [address] Laney Harrison MD [address] [place] [address] Social History Tobacco Use Types [...] week 08/09/2022 How often do you attend [facility] or buddhist services? 1 to 4 times per year [...] Recorded Patient Health Questionnaire-2 Score 0 08/23/2022 [place] of Occupat ional [facility] - Occupational Stress Questionnaire Answer Date [...] Orientation Straight 08/08/2022 11 :41 AM EDT COVID-19 Exposure Response Date Recorded In the last 10 days, have yo u been in contact with someone who was confirmed or suspected to have Coronavirus/COVID-19? No / Unsure 08/22/2022 11:05 AM EDT documented as of this encounter Functional Status * Over the past 2 weeks, how often have you been bothered by any of the following problems? Question Answer Date of Assessment Author Little interest or pleasure in doing things Not at all 08/23/2022 10:37 AM TALAT Symone Goddard MA Feeling down, depressed, or hopeless Not at all 08/23/2022 10:37 AM EDT Symone Goddard MA Patient Health Questionnaire-2 Score 0 08/23/2022 10:37 AM EDT Marilyn Goddard MA documented as of this encounter Plan of Treatment Not on file documented as of this encounter Visit Diagnoses Not on filedocumented in this encounter Care Teams Permaculture Designer Relationship Specialty Start Date End Date Laney Harrison MD [address] [place], [place] [id number] PCP - General Family Medicine 07/27/22 02/20/24 Laney Harrison MD [address] [place] [address] PCP - GWYN HERNANDEZ 12/06/23 Laney Harrison MD [address] [place] [address] PCP - General Family Medicine 03/13/24 05/14/24 Unallocated, Gwyn Epstein MD [address] [place] [address] PCP - General Family Medicine 05/15/24 Lucila Lopez PMHNP- [address] [facility] [address] [place] [address] Nurse Practitioner Behavioral Health 02/21/24 09/17/24 Juliana Stewart DPM [address] [facility] [address] [place] [address] Referring Physician Podiatry 02/21/24 Matt Laguna MD [address] [place] [address] Referring Physician Gastroenterology 02/21/24 Nicol Weber MD [address] [place] [address] Referring Physician Vascular Surgery 02/21/24 Marilu Hutchinson DO [address] [place] [address] Referring Physician Pulmonary Disease 02/21/24 Samantha Rosenthal LPC Therapist Behavioral Health 04/11/24 08/21/24 Michelle Mcintyre [facility] [address] [place] [address] Content Specialist Behavioral Health 04/08/24 04/09/24 documented as of this encounter
--- OUTSIDE RECORDS SUMMARY | 2024-11-14 20:51 | XMS_ITS | Clinical Summary ---
Author Organization [facility] Address [address] [place] [address] Care Team Providers Care Distributor Of Directories Name Role Phone Laney Harrison MD Unavailable Juliana Stewart DPM Unavailable Matt Laguna MD Unavailable Nicol Weber MD Unavailable Marilu Hutchinson DO Unavailable [phone] Unallocated, [facility] Provi adela Allergies Active Allergy Reactions Criticality Noted Date Comments Diphenhydramine Other High 10/21/2023 Hyperactivity level Other Reaction(s): Hyperactivity level Gabapentin Other High 07/27/2022 Mental status change Meperidine Hives High 02/07/2014 Other Reaction(s): Skin reaction Meperidine Hcl Other Low 07/27/2022 skin reaction Metronidazole Hallucinations Low 07/27/2022 Medications Blood Glucose Monitoring Suppl (LiveWire Mobile Verio Flex System) w/Device kitIndications:Glu cose intolerance 1 each in the morning. 1 kit 11 3 Active metoprolol tartrate (Lopressor) 25 MG tabletIndications: Essential hypertension TAKE 1 TABLET BY MOUTH TWICE A DAY WITH FOOD 60 tablet 10 3 Active pravastatin (Pravachol) 40 MG tabletIndications: Mixed hyperlipidemia TAKE 1 TABLET BY MOUTH AT BEDTIME 90 tablet 11 4 Active cyclobenzaprine (Flexeril) 10 MG tabletIndications: Fibromyalgia Take 1 tablet (10 mg) by mouth at bedtime 30 tablet 11 4 12/28/19 Active ammonium lactate (Amlactin) 12 % creamIndications:X erosis cutis Apply topically 2 (two) times a day 385 g 11 4 12/28/19 25 Active glucose blood test stripIndications:C ontrolled type 2 diabetes mellitus with stage 1 chronic kidney disease, without long-term current use of insulin (HCC) USE DIRECTED 100 each 11 4 Active venlafaxine XR (Effexor XR) 150 MG 24 hr capsuleIndications :Major depressive disorder, single episode, moderate (HCC) Take 2 capsules (300 mg) by mouth Daily Do not crush or chew. 180 capsule 3 4 01/23/20 25 Active amitriptyline (Elavil) 25 MG tabletIndications: Major depressive disorder, single episode, moderate (HCC),CARMEL (generalized anxiety disorder),Fibromya lgia Take 1 tablet (25 mg) by mouth at bedtime 30 tablet 1 4 02/21/20 25 Active mirtazapine (Remeron) 45 MG tabletIndications: Primary insomnia TAKE 1 TABLET BY MOUTH AT BEDTIME 100 tablet 11 4 Active rOPINIRole (Requip) 2 MG tabletIndications: Restless legs syndrome TAKE 1 TABLET BY MOUTH TWICE DAILY. IN THE MORNING AND BEFORE BEDTIME 200 tablet 11 4 Active Myrbetriq 50 MG 24 hr tabletIndications: Overactive bladder TAKE 1 TABLET BY MOUTH IN THE MORNING 100 tablet 11 4 Active lisinopril 10 MG tabletIndications: Essential hypertension TAKE 1 TABLET BY MOUTH ONCE DAILY AT THE SAME TIME EACH DAY 100 tablet 11 4 Active Xarelto 10 MG tablet Take 10 mg by mouth in the morning. 4 Active B12 Fast Dissolve 5000 MCG tablet dispersible DISSOLVE 1 TAB UNDER THE TONGUE ONCE DAILY 4 Active pregabalin (Lyrica) 75 MG capsuleIndications :Fibromyalgia Take 1 capsule (75 mg) by mouth in the morning and 1 capsule (75 mg) before bedtime. 200 capsule 5 Active celecoxib (CeleBREX) 200 MG capsuleIndications :Primary osteoarthritis, left ankle and foot TAKE ONE TABLET BY MOUTH EVERY MORNING AND TAKE ONE TABLET BY MOUTH EVERY EVENING 60 capsule 11 5 Active omeprazole (PriLOSEC) [address] capsuleIndications :Gastro-esophageal reflux disease without esophagitis TAKE 1 CAPSULE BY MOUTH TWICE DAILY IN THE MORNING AND IN THE EVENING BEFORE MEAL(S). DO NOT CRUSH OR CHEW 90 capsule 11 5 Active Hospital, Clinic, or Other Facility Administered Medication Ordered Dose Route Frequency Start Date End Date Status triamcinolone acetonide (Kenalog-40) injection 40 mgIndications:Greater trochanteric bursitis of left hip 40 mg IM Once 08/23/2022 Active lidocaine (Xylocaine) 1 % injection 20 mgIndications:Greater trochanteric bursitis of left hip 20 mg ID Once 08/23/2022 Active Active Problems Problem Noted Date Diagnosed Date Chronic anticoagulation 06/13/2024 Anxiety 10/21/2023 History of blood clots 10/21/2023 Nonspecific colitis 10/21/2023 Palpitations 10/21/2023 Hernia of abdominal wall 10/21/2023 Type 2 diabetes mellitus wit h stage 3a chronic kidney disease, without long-term current use of insulin 03/16/2023 Chronic kidney disease, stage 3a (N18.31) 2023 KRISTAL (obstructive sleep apnea) 03/16/2023 Dyspnea on exertion 12/06/2022 Acquired absence of both cervix and uterus 08/09 Arthritis of carpometacarpal (CMC) joint of left thumb 08/09/2022 Carpal tunnel syndrome 08/09/2022 Chronic fatigue 08/09/2022 Chronic pharyngitis 08/09/2022 Dysfunction of eustachian tube 08/09/2022 Essential hypertension 08/09/2022 Decreased estrogen level 08/09/2022 Gastro-esophageal reflux disease without esophag itis 08/09/2022 H/O colectomy 08/09/2022 Major depressive disorder, single episode, moder ate 08/09/2022 Osteopenia 08/09/2022 Fibromyalgia 08/09/2022 Overactive bladder 08/09/2022 Paresthesia 08/09/2022 Primary insomnia 08/09/2022 Primary localized osteoarthrosis of ankle and fo ot 08/09/2022 Pure hypercholesterolemia 08/09/2022 Restless legs syndrome 08/09/2022 Sensorineural hearing loss (SNHL) of right ear 0 08/09/2022 Short bowel syndrome 08/09/2022 Solitary pulmonary nodule 08/09/2022 Vitamin D deficiency 08/09/2022 History of colostomy reversal 06/28/2022 Body mass index (BMI) 40.0-44.9, adult 3 Sensorineural hearing loss ( SNHL) of right ear with unrestricted hearing of left ear 07/10/2020 H/O: hysterectomy 10/05/2018 TMJ arthropathy 05/25/2017 Dysfunction of both eustachian tubes 04/27/2017 HLD (hyperlipidemia) 09/30/2016 Overview (08/22/2022): Last Assessment & Plan: Assessment: stable on medication Morbid (severe) obesity due to excess calories 0 09/30/2016 Prosthetic joint implant failure 02/04/2016 Overview (08/22/2022): Added automatically from request for surgery [id number] Painful total knee replacement 12/23/2015 OA (osteoarthritis) of knee 11/28/2012 Resolved Problems Problem Noted Date Diagnosed Date Resolved Date Chronic deep vein thrombosis (DVT) of popliteal vein of left lower extremity 02/13/2024 0 03/14/2024 Abdominal pain 10/21/2023 02/06/2024 Excessive daytime sleepiness 12/06/2022 02/06/2024 Depression 08/22/2022 03/16/2023 Overview (08/22/2022): Last Assessment & Plan: Assessment: stable on medication Pulmonary embolism 08/11/2022 Acute stress disorder 08/09/20222023 Constipation by delayed colonic transit 08/09/2022 03/16/2023 Colonic ischemia (HHS-HCC) 08/09/2022 0 03/16/2023 Laryngopharyngeal reflux 08/09/2022 01/ 12/2023 Status post revision of tota l replacement of both knees 08/09/2022 03/16/2023 Stress and adjustment reaction 08/09/2022 03/16/2023 Tinnitus 08/09/2022 03/16/2023 Artificial knee joint present 04/01/2017 03/16/2023 Immunizations Immunization Administration Dates Next Due Influenza, Injectable, MDCK, preservative free 02/23/2018 Influenza, Unspecified 03/22/2018,06/17/2017 Influenza, injectable, MDCK, preservative free, quadrivalent 02/23/2018 Influenza, injectable, quadr ivalent, preservative free 11/30/2022,12/28/2021,01/19/2020,02/03,01/28/2014 Influenza, seasonal, injecta ble, preservative free 01/23/2024,02/05/2014 Pneumococcal Polysaccharide PPSV23 02/04/2016 Zoster, Recombinant 01/19/2020 Family History Medical History Relation Name Comments Arthritis Father Demetri COPD Father Demetri Diabetes Father Demetri Emphysema Father Demetri Hearing loss Father Demetri Heart disease Father Demetri Heart failure Father Demetri Hypertension Father Demetri Kidney disease Father Demetri Vision loss Father Demetri Diabetes Maternal Grandmother Amparo Heart disease Maternal Grandmother Amparo Hypertension Maternal Grandmother Amparo Stroke Maternal Grandmother Amparo Heart disease Mother August Breast cancer Sister Asthma Son 2 [facility] Depression Son 2 [facility] Relation Name Status Comments Daughter 1 Alive Daughter 2 Father Demetri Maternal Grandmother Amparo Mother Caitlyn Sister Son 1 Alive Son 2 [facility] Social History Tobacco Use Types Packs/Day Years [...] How often do you attend chur or adventism services? Never 10/17/2023 Do you belong to any clubs o r organizations such as zoroastrian groups, unions, fraternal or athletic groups, or [...] Recorded Patient Health Questionnaire-2 Score 0 08/23/2022 [facility] [place] [facility] Occupat ional Health - Occupational Stress [...] place to sleep or slept in a usp (including now)? No 08/09/2022 Housing Stability Vital Sign Answer Luigi e Recorded In the last 12 months, was t here a time when you were not able to pay the mortgage or rent on time? No 10/17/2023 In the past 12 months, how m any times have you moved where you were living? 0 10/17/2023 At any time in the past [address] [facility], were you homeless or living in a usp (including now)? No 10/17/2023 Education Answer Date [...] file Not on file Not on file Last Filed Vital Signs Vital Sign Reading Time Taken Comments Blood Pressure 150/88 06/13/2024 11:07 AM EDT Pulse 85 02/21/2024 9:59 AM EST Temperature - - Respiratory Rate 18 01/23/2024 10:52 AM EST Oxygen Saturation 98% 01/23/2024 10:52 AM EST Inhaled Oxygen Concentration - - Weight 115 kg (254 lb) 06/13/2024 11:07 AM EDT Height 154.9 cm (5' 1 ) 06/13/2024 11:07 AM EDT Body Mass Index 47.99 06/13/2024 11:07 AM EDT Plan of Treatment Health Maintenance Due Date Last Done Comments Diabetes: Hemoglobin A1C 09/18/2024 025, 01/23/2024, 10/21/2023, Additional history exists Influenza Vaccine (#1) 2024 4, 11/30/2022, 12/28/2021, Additional history exists Diabetes: Retinopathy Screening 12/29/2024 3, 12/29/2022 Diabetes: Urine Protein Screening 01/22/2025 024, 11/30/2022 Mammogram 04/11/2025 04/11/2024, 07/06, 11/27/2019, Additional history exists Colonoscopy Discontinued 12/24/2021, 05/20/2014 Colorectal Cancer Screening Discontinued CT Colonography Discontinued FIT-DNA Discontinued FIT Discontinued FOBT Discontinued Sigmoidoscopy Discontinued Goals Goal Patient Goal Type Associated Problems Recent Progress Patient-Stated? Author Help patient manage antidepressant medication Care Plan Patient on antidepressant monitoring plan Laney Christy MD Baseline PHQ-9 Care Plan Baseline PHQ-9 Laney Christy MD Procedures Procedure Name Priority Date/Time Associated Diagnosis Comments BI MAMMOGRAM SCREENING TOMOSYNTHESIS BILATERAL Routine 04/11/2024 11:51 AM EST Routine general medical examination at a health care facility MICROALBUMIN / CREATININE URINE RATIO Routine 01/23/2024 11:57 AM EST Type 2 diabetes mellitus with stage 3a chronic kidney disease, without long-term current use of insulin (HCC) POCT GLYCOSYLATED HEMOGLOBIN (HGB A1C) Routine 01/23/2024 11:07 AM EST Type 2 diabetes mellitus with stage 3a chronic kidney disease, without long-term current use of insulin (HCC) DIABETIC RETINOPATHY SCREENING - OU - BOTH EYES Routine 12/29/2022 2:11 PM EDT COLONOSCOPY Routine 12/24/2021 12:00 PM EDT from Last 3 Months or Most Recently Relevant to Health Maintenance Results * Bilateral screening mammogram with tomosynthesis (04/11/2024 11:51 AM EST) Anatomical Region Laterality Modality Breast Bilateral Mammography 04/11/2024 5:20 PM EST Impressions 04/11/2024 5:26 PM EST Impression: No specific evidence of malignancy seen in either breast. BIRADS 2 - Benign Findings DENSITY: The breasts are almost entirely fatty. FOLLOW-UP: Routine Screening Mammogram ELECTRONICALLY SIGNED BY: Vidal Garvin M.D. Narrative 04/11/2024 5:26 PM EST Examination: BI MAMMOGRAM SCREENING TOMOSYNTHESIS BILATERAL Clinical History: screen Technique: Screening digital mammography study of both breasts was performed with 2-D and 3-D tomosynthesis imaging. Study was compared to the prior exam dated 11/27/2019. Findings: There is no evidence of interval dominant spiculated mass, grouped microcalcifications, or skin thickening which would be suggestive of malignancy. A few benign-appearing calcifications noted bilaterally. Axillary lymph nodes on the left which appear grossly unremarkable. Partially visualized axillary lymph node on the right is suggested which appears unremarkable. Procedure Note Vidal Garvin MD - 04/11/2024 Examination: BI MAMMOGRAM SCREENING TOMOSYNTHESIS BILATERAL Clinical History: screen Technique: Screening digital mammography study of both breasts wasperformed with 2-D and 3-D tomosynthesis imaging. Study was compared tothe prior exam dated 11/27/2019. Findings: There is no evidence of interval dominant spiculated mass,grouped microcalcifications, or skin thickening which would be suggestiveof malignancy. A few benign-appearing calcifications noted bilaterally. Axillary lymphnodes on the left which appear grossly unremarkable. Partially visualizedaxillary lymph node on the right is suggested which appearsunremarkable. IMPRESSION: Impression: No specific evidence of malignancy seen in either breast. BIRADS 2 - Benign Findings DENSITY: The breasts are almost entirely fatty. FOLLOW-UP: Routine Screening Mammogram ELECTRONICALLY SIGNED BY: Vidal Garvin M.D. Laney Harrison MD IMG BI PROCEDURES Final Result * Microalbumin / creatinine urine ratio (01/23/2024 11:57 AM EST) CREATININE, RANDOM URINE 124 20 - 275 mg/dL [facility] ALBUMIN, URINE 0.2 See Note: mg/dL [facility] Comment: Reference Range: Reference Range Not established ALBUMIN/CREATININE RATIO, RANDOM URINE 2 <30 mg/g creat [facility] Comment: The ADA defines abnormalities in albumin excretion as follows: Albuminuria Category Result (mg/g creatinine) Normal to Mildly increased <30 Moderately increased 30-299 Severely increased > OR = 300 The ADA recommends that at least two of three specimens collected within a 3-6 month period be abnormal before considering a patient to be within a diagnostic category. Urine Urine specimen obtained by clean catch procedure / Unknown 01/23/2024 11:57 AM EST 01/23/2024 11:57 AM EST Narrative Resulting Agency Comment Performing Organization Information Site ID: [id number] Name: [facility] Address: [address] [place] [id number] Director: Sal Titus MD Laney Harrison MD LAB URINE ORDERABLES Final Resul t [facility] * POCT glycosylated hemoglobin (Hb A1C) docked device (01/23/2024 11:07 AM EST) Hemoglobin A1C 6.0 Blood Venous blood specimen / Unknown 01/23/2024 11:07 AM EST us Laney Harrison MD POINT OF CARE TEST ENTER/EDIT OR DERABLES Final Result * Diabetic Retinopathy Screening - OU - Both Eyes (12/29/2022 2:11 PM EDT) Anatomical Region Laterality Modality Head Other Laney Harrison MD OPHTH PHOTOGRAPHY Final Result * Colonoscopy (12/24/2021 12:00 PM EDT) Anatomical Region Laterality Modality Endoscopy 12/24/2021 12:0 0 PM EDT Narrative 12/24/2021 12:00 PM EDT PERFORMED AT [facility] LOCATION:[id number] Procedure Note CONVERSION, GENERIC - 07/21/2022 PERFORMED AT [facility] LOCATION:[id number] Laney Harrison MD ENDOSCOPY PROCEDURE ORDERABLES F inal Result from Last 3 Months or Most Recently Relevant to Health Maintenance Additional Health Concerns Active Problems Noted Date Diagnosed Date Patient on antidepressant monitoring plan 2022 Baseline PHQ-9 01/16/2023 Insurance [employer] [place]ICA[place] Care Teams Distributor Of Directories Relationship Specialty Start Date End Date Laney Harrison MD [address] [place] [address] PCP - GWYN Medellin [employer] 12/06/23 Unallocated, Gwyn Epsteni MD [address] [place] [address] PCP - General Family Medicine 05/15/24 Juliana Stewart DPM [address] [facility] [address] [place] [address] Referring Physician Podiatry 02/21/24 Matt Laguna MD [address] [facility] [address] [place] [address] Referring Physician Gastroenterology 02/21/24 Nicol Weber MD [address] [address] Referring Physician Vascular Surgery 02/21/24 Marilu Hutchinson DO [address] [place] [address] Referring Physician Pulmonary Disease 02/21/24
--- OUTSIDE RECORDS SUMMARY | 2024-11-14 20:51 | XMS_ITS | Clinical Summary ---
Author Organization [facility] Address [address] [place] [address] Care Team Providers Care Infection Control Specialist Name Role Phone Laney Harrison MD Primary Care Provider [phone] Allergies Active Allergy Reactions Criticality Noted Date Comments Meperidine (Pf) Hives 02/07/2014 Metronidazole Hcl Mental Status Change 04/12/19 15 Gabapentin Mental Status Change 07/20/2022 Hallucinations Medications MYRBETRIQ 50 mg Tb24 Take 1 tablet by mouth once daily. 6 Active metoprolol tartrate, short acting, (LOPRESSOR) 25 mg tablet 25 mg twice daily. 6 Active VENLAFAXINE ER 150 MG TABLET,EXTENDED RELEASE 24 HR Take 300 mg by mouth once daily. Active rOPINIRole (REQUIP) 2 mg tablet Take 2 mg by mouth twice daily. Active lisinopril (ZESTRIL, PRINIVIL) 10 mg tablet Take 10 mg by mouth once daily. Active lipase-protease -amylase (ZENPEP) 40,000-126,000- 168,000 unit delayed release capsule Take 1 capsule by mouth three times daily with meals. Active pravastatin (PRAVACHOL) 40 mg tablet Take 40 mg by mouth once daily. Active omeprazole (PRILOSEC) 40 mg capsule Take 40 mg by mouth twice daily. 2 Active acetaminophen (TYLENOL) 500 mg tablet Take 2 tablets by mouth every 6 hours. 3 Active miconazole 2 % powder Apply 1 application to affected area twice daily. 10 g 1 3 Active traMADol (ULTRAM) 50 mg tabletIndicatio ns:Post-op pain Take 1 tablet by mouth every 6 hours as needed. 28 tablet 3 Active rivaroxaban (XARELTO) 20 mg tablet Take 20 mg by mouth daily with dinner. Active Active Problems Problem Noted Date Diagnosed Date History of colostomy reversal 06/28/2022 Obesity, Class III, BMI >= 40 06/27/2022 Obesity, Class II, BMI 35-39.9 12/25/2021 Assessment & Plan (06/10/2022 1:22 PM EDT): Assessment: There is no height or weight on file to calculate BMI. 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 Overview (09/13/2016): Added automatically from request for surgery [id number] Failed total knee arthroplasty 02/04/2016 Painful total knee replacement 12/23/2015 Pes anserine bursitis 05/27/2015 OA (osteoarthritis) of knee 11/28/2012 Lingual tonsil hypertrophy 11/10/2012 GERD (gastroesophageal reflux disease) 3 Assessment & Plan (06/10/2022 1:21 PM EDT): Assessment: on PPI Conductive hearing loss in right ear 11/10/2012 Skin sensation disturbance 10/24/2012 RLS (restless legs syndrome) Assessment & Plan (06/10/2022 1:20 PM EDT): Assessment: on Requip at night Depression Assessment & Plan (06/10/2022 1:22 PM EDT): Assessment: stable on medication Resolved Problems Problem Noted Date Diagnosed Date Resolved Date Delirium 07/01/2022 07/03/2022 Status post total knee replacement 11/09/2013 05/27/2015 Cough 11/10/2012 05/27/2015 Immunizations Immunization Administration Dates Next Due COVID-19 vaccine, age 12+ yr , bivalent (PFIZER-BIONTBookitNow!) 07/03/2022(Deferred: Patient Refused) influenza (IIV3) vaccine, tr ivalent, PF (AFLURIA, FLUARIX, FLULAVAL, FLUVIRIN, FLUZONE) 02/05/2014 influenza (IIV4) vaccine, ag e 6 mo - 64 yr, quadrivalent, PF (AFLURIA, FLUARIX, FLULAVAL, FLUZONE) 12/28/2021,01/19/2020,02/04/2016,01/28 influenza (ccIIV3) vaccine, age 6+ mo, trivalent, PF (FLUCELVAX) 02/23/2018 influenza vaccine, unspecifi ed formulation 03/22/2018 pneumococcal polysaccharide (PPV23) vaccine, 23 valent (PNEUMOVAX 23) 02/04/2016 zoster (RZV) vaccine, recomb inant (SHINGRIX) 01/19/2020 Family History Medical History Relation Comments COPD Father Diabetes Father Heart Father CHF Arthritis Mother Relation Status Comments Father Alive Mother Social History Tobacco Use Types Packs/Day Years Used Date Smoking Tobacco: Never Smokeless Tobacco: Never Tobacco Cessation:Counseling Given: Not Answered Alcohol Use Standard Drinks/Week Comments No 0 [...] place to sleep or slept in a skilled nursing (including now)? No 12/25/2021 Area Deprivation Index Answer Date Corwin rded National Score (1-100), lower number is lower ri sk Not on file 02/13/2020 State Score (1-10), lower number is lower risk N ot on file 02/13/2020 Data from: https://www.neighborhoodatlas.medicine.[facility].edu/. Last address used for calculation Not on file 02/13/2020 Comments No Sex and Gender Information Value Date Recorded Sex Assigned at Female 07/17/2021 5:01 PM EDT Legal Sex Female 2:19 PM EDT Gender Identity Female 07/17/2021 5:01 PM EDT Sexual Orientation Straight 07/17/2021 5: 01 PM EDT Last Filed Vital Signs Vital Sign Reading Time Taken Comments Blood Pressure 127/72 09/13/2022 9:31 AM EDT Pulse 87 09/13/2022 9:31 AM EDT Temperature 36.3 C (97.3 F) 09/13/2022 9:31 AM EDT Respiratory Rate 16 07/03/2022 11:08 AM EDT Oxygen Saturation 97% 09/13/2022 9:31 AM EDT Inhaled Oxygen Concentration - - Weight 97.1 kg (214 lb) 09/13/2022 9:31 AM EDT Height 157.5 cm (5' 2 ) 09/13/2022 9:31 AM EDT Body Mass Index 39.14 09/13/2022 9:31 AM EDT Plan of Treatment Health Maintenance Due Date Last Done Comments Annual PCP Team Chronic Dise ase Visit 06/25/1979 Anxiety Screening 06/25/1979 HIV Screening 06/25/1979 Hepatitis C Screening 06/25/1979 DTaP,Tdap,Td Vaccine (1 - Tdap) 1980 Cervical Cancer Screening 1982 CT Colonography 2006 Cologuard (FIT-DNA) 2006 Colonoscopy 2006 Colorectal Cancer Screening 2006 Fecal Occult Blood 2006 Lipid Screening 2006 Sigmoidoscopy 2006 Pneumococcal Vaccine: 50+ (2 of 2 - PCV) 02/03/2017 02/04/2016 Shingrix Vaccine (2 of 2) 03/15/2020 01/19/2020 Mammogram Screening 11/26/2020 11/27/2019, 0 RSV Vaccine (1 - Risk 60-74 years 1-dose series) 2021 Influenza Vaccine (#1) 2024 2, 01/19/2020, 03/22/2018, Additional history exists Diabetes Screening 08/13/2025 08/13/2022, 0 08/12/2022, 08/11/2022, Additional history exists Medical Devices Implanted Type Area Tripe Finisher Device Identifier Shelf Expiration Date Model / Serial / Lot Filler 1.7-10mm Cancellous Bone Void Allograft Chip Freeze Dried 5ml - [id number] Implanted:Qty: 1 on 02/04/2016 at [facility] Bone Left: Bone - Knee MTF 09/03/2018 [id number] / [id number] / Description:In room -1300 on field - 1315 no prep handlers : Tessy Lyn George Ferny Bn Smplx Hv Gentamicin Fd - [id number] Implanted:Qty: 2 on 10/22/2013 at [facility] Cement / Putty Right: Bone - Knee KASIE 01/04/2015 6195-1-001 / / [id number] Ferny Bn Smplx Hv Gentamicin Fd - [id number] Implanted:Qty: 2 on 02/18/2014 at [facility] Cement / Putty Left: Bone - Knee KASIE 04/21/2015 6195-1-001 / / [id number] Description:SIMPLEX HV WITH GENTAMICIN Ferny Bn Smplx Hv Gentamicin Fd - [id number] Implanted:10/05 at [facility] (Quantity not on file) Cement / Putty Right: Bone - Knee [facility] 04/06/2018 [id number] / / [id number] Ferny Bn Smplx Hv Gentamicin Fd - [id number] Implanted:10/05 at [facility] (Quantity not on file) Cement / Putty Right: Bone - Knee [facility] 04/06/2018 [id number] / / [id number] Restrictor,Bon e Cement,Chambers Femoral,Size 18.5 Mm Bx/3 Implanted:Qty: 1 on 10/19/2016 at [facility] Implant Right: Bone - Knee [employer] 12/01/2025 [id number] / / [id number] Comp Tibtry 2.5 Kn Ferny Mdlr - [id number] Implanted:Qty: 1 on 10/22/2013 at [facility] Joint - Knee Right: Bone - Knee [employer] 01/04/2022 [id number] / / [id number] Comp Fem 3 Rt Kn Ferny Ps Pfc - [id number] Implanted:Qty: 1 on 10/22/2013 at [facility] Joint - Knee Right: Bone - Knee [employer] 07/05/2023 [id number] / / [id number] Ins Tib 2.5 10mm Kn Cocr Xlnk - [id number] Implanted:Qty: 1 on 10/22/2013 at [facility] Joint - Knee Right: Bone - Knee [employer] 04/06/2018 [id number] / / [id number] Ins Tib 2.5 10mm Kn Cocr Xlnk - [id number] Implanted:Qty: 1 on 02/18/2014 at [facility] Joint - Knee Left: Bone - Knee [employer] 08/04/2018 [id number] / / [id number] Description:tibial insert Comp Fem 3 Lt Kn Ferny Ps Pfc - [id number] Implanted:Qty: 1 on 02/18/2014 at [facility] Joint - Knee Left: Bone - Knee [employer] 10/05/2023 [id number] / / [id number] Description:femoral Comp Tibtry 2.5 Kn Ferny Mdlr - [id number] Implanted:Qty: 1 on 02/18/2014 at [facility] Joint - Knee Left: Bone - Knee [employer] 09/04/2023 [id number] / / [id number] Description:tibial tray Extension Sigma 13mm 1.5/2/2.5/3 30mm Stem Cemented Knee Tibial - [id number] Implanted:Qty: 1 on 02/04/2016 at [facility] Joint - Knee Left: Bone - Knee [employer] 08/03/2024 [id number] / / [id number] Tray Sigma 2.5 Cocr Tibial Cemented Modular Knee - [id number] Implanted:Qty: 1 on 02/04/2016 at [facility] Joint - Knee Left: Bone - Knee [employer] 10/03/2025 [id number] / / [id number] Insert Pfc Sigma 2.5 Uhmwpe 20mm Tibial Fix Bearing Stabilize Plus Knee - [id number] Implanted:Qty: 1 on 02/04/2016 at [facility] Joint - Knee Left: Bone - Knee [employer] 04/05/2016 [id number] / / [id number] Tray Sigma 2.5 Cocr Tibial Cemented Modular Knee - [id number] Implanted:10/05 at [facility] (Quantity not on file) Joint - Knee Right: Bone - Knee [employer] 06/04/2026 [id number] / / [id number] Extension Sigma 13mm 1.5/2/2.5/3 30mm Stem Cemented Knee Tibial - [id number] Implanted:10/05 at [facility] (Quantity not on file) Joint - Knee Right: Bone - Knee [employer] 07/04/2025 [id number] / / [id number] Insert Pfc Sigma 2.5 Uhmwpe 22.5mm Tibial Fix Bearing Stabilize Plus Knee - [id number] Implanted:10/05 at [facility] (Quantity not on file) Joint - Knee Right: Bone - Knee [employer] 09/04/2019 [id number] / / [id number] Dome Pat 35mm Pfc Sig Sm Kn - [id number] Implanted:Qty: 1 on 10/22/2013 at [facility] Joint - Patella Right: Bone - Knee [employer] 05/04/2018 [id number] / / [id number] Dome Pat 35mm Pfc Sig Sm Kn - [id number] Implanted:Qty: 1 on 02/18/2014 at [facility] Joint - Pat[place] Left: Bone - Knee [employer] 09/03/2018 [id number] / / [id number] Description:patella Restrictor Chambers 18.5mm 18.5 Cement Sterile Latex Free Femur Hip - [id number] Implanted:Qty: 1 on 02/04/2016 at [facility] Joint Left: Bone - Knee [employer] 12/04/2025 [id number] / / [id number] Procedures Procedure Name Priority Date/Time Associated Diagnosis Comments BASIC METABOLIC PANEL Routine 07/03/2022 8:06 AM EDT from Last 3 Months or Most Recently Relevant to Health Maintenance Results * (ABNORMAL) BASIC METABOLIC PNL (07/03/2022 8:06 AM EDT) [facility] Glucose 99 74 - 99 mg/dL 07/03/2022 8:54 AM EDT [facility] Comment: The [place] Diabetes Association (ADA) provides guidance for cutoff values for fasting glucose and random glucose. The ADA defines fasting as no caloric intake for at least 8 hours. Fasting plasma glucose results between 100 to 125 mg/dL indicate increased risk for diabetes (prediabetes). Fasting plasma glucose results greater than or equal to 126 mg/dL meet the criteria for diagnosis of diabetes. In the absence of unequivocal hyperglycemia, results should be confirmed by repeat testing. In a patient with classic symptoms of hyperglycemia or hyperglycemic crisis, random plasma glucose results greater than or equal to 200 mg/dL meet the criteria for diagnosis of diabetes. Reference: Standards of Medical Care in Diabetes 2016, [place] Diabetes Association. Diabetes Care. 2016.39(Suppl 1). BUN 12 7 - 21 mg/dL 07/03/2022 8:54 AM EDT [facility] Creatinine 0.91 0.58 - 0.96 mg/dL 07/03/2022 8:54 AM EDT [facility] Sodium 138 136 - 144 mmol/L 07/03/2022 8:54 AM EDT [facility] Potassium 3.6(L) 3.7 - 5.1 mmol/L 07/03/2022 8:54 AM EDT [facility] Chloride 100 97 - 105 mmol/L 07/03/2022 8:54 AM EDT [facility] CO2 26 22 - 30 mmol/L 07/03/2022 8:54 AM EDT [facility] Anion Gap 12 9 - 18 mmol/L 07/03/2022 8:54 AM EDT [facility] Calcium, Total 9.0 8.5 - 10.2 mg/dL 07/03/2022 8:54 AM EDT [facility] Estimated Glomerular Filtration Rate 72 >=60 mL/min/1. 73m 07/03/2022 8:54 AM EDT [facility] Comment:Estimated Glomerular Filtration Rate (eGFR) is calculated using the 2020 CKD-EPI creatinine equation. This equation utilizes serum creatinine, sex, and age as parameters. The creatinine assay has traceable calibration to isotope dilution- mass spectrometry. Refer to KDIGO guidelines for clinical interpretation. In patients with unstable renal function, e.g. those with acute kidney injury, the eGFR may not accurately reflect actual GFR. Blood BLOOD SPECIMEN / Unknown Venipuncture / Unknown 07/03/2022 8:06 AM EDT 07/03/2022 8:25 AM EDT us Chelita Hernandez MD LABORATORY Final Result Performing Organization Address City/State/[facility] Co de Phone Number [facility] [phone] from Last 3 Months or Most Recently Relevant to Health Maintenance Insurance [employer] [place] Advance Directives Documents on File Type Date Recorded Patient Manager Analytical Expl anation Advance Directive(s) 06/28/2022 9:34 AM Care Teams Infection Control Specialist Relationship Specialty Start Date End Date Laney Harrison MD [address] [place] [address] PCP - General Family Medicine 06/02/22
--- OUTSIDE RECORDS SUMMARY | 2024-11-14 20:51 | XMS_ITS | Encounter Summary ---
Author Organization [facility] Address [address] [place] [address] Care Team Providers Care Office Equipment Mechanic Name Role Phone Natalie Campbell MD Primary Care Provider [phone] Laney Harrison MD Primary Care Provider [phone] Source Comments In the event this information is protected by the Federal Confidentiality of Alcohol and Drug AbusePatient Records regulations: The Federal rules restrict any use of the information to criminally investigate or prosecute any alcohol or drug abuse patient.[facility] Encounter Details Date Type Department Care Team (Late st Contact Info) Description 07/10/2014 Patient Msg Medical Records [address] [place] [address] Provider, [facility] Appointment Cancellation Request Social History [...] documented as of this encounter Care Teams Office Equipment Mechanic Relationship Specialty Start Date End Date Natalie Campbell MD [address] [place] [address] PCP - General Family Medicine 10/04/12 06/01/22 Laney Harrison MD [address] [place] [address] PCP - General Family Medicine 06/02/22 documented as of this encounter
== END 2024-11-14 20:47 | disposition home or self-care (01) ==
PROVIDERS: PCP Psychiatry & Neurology Neurology; Visit Provider Psychiatry & Neurology Neurology
DX: G47.33 Obstructive sleep apnea (adult) (pediatric) (principal); F51.01 Primary insomnia; G25.81 Restless legs syndrome
CPT/HCPCS: 95810